=== PATIENT | male | born 1980 | race Caucasian/White ===

== ENCOUNTER 2018-11-15 23:02 | Emergency (ER) | payer OTHER ==
[2018-11-15] MEDS ORDERED: IBUPROFEN 400 MG TAB ONE (23:48)
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
== END 2018-11-16 01:21 | disposition home or self-care (01) ==
LOC: ER 23:02
PROC: 2W3CX1Z Immobilization of Right Lower Arm using Splint (ICD-10-PCS; principal; 2018-11-15)
DX: S62.626A Displaced fracture of middle phalanx of right little finger, initial encounter for closed fracture (principal); W24.1XXA Contact with transmission devices, not elsewhere classified, initial encounter; F41.9 Anxiety disorder, unspecified; F32.9 Major depressive disorder, single episode, unspecified
CPT/HCPCS: 99284

== ENCOUNTER 2019-03-27 22:38 | Emergency (ER) | payer OTHER ==
[2019-03-27 23:40] LABS: Protime INR 1.14
[2019-03-27 23:41] LABS: Absolute Lymphocytes (CBC) 1.5 K/uL (0.7-4.9); Basophils % 0.3 % (0-1.3); Hematocrit 37.4 % (39.6-49.0); Lymphocytes % 24.3 % (15.3-44.8); MPV 8.2 fL (7.6-11.3); RBC Red Blood Cell Count 4.39 M/uL (4.33-5.43)
[2019-03-28] LABS: ALT/SGPT 17 U/L (12-78); AST/SGOT 13 U/L (15-37); Albumin 3.4 g/dL (3.4-5.0); Alkaline Phosphatase 37 U/L (45-117); BUN Blood Urea Nitrogen 12 mg/dL (7-18); Bicarbonate 27 mmol/L (21-32); Bilirubin Direct 0.1 mg/dL (0-0.2); Bilirubin Total 0.3 mg/dL (0.2-1.0); Glucose Level 91 mg/dL (74-106); Magnesium 1.8 mg/dL (1.8-2.4); NT PRO-BNP 21 pg/mL (<125); Potassium 3.4 mmol/L (3.5-5.1); Protein, Total 6.8 g/dL (6.4-8.2); Sodium Level 146 mmol/L (136-145); Troponin (Emerg Dept Use Only) < 0.02 ng/mL (0.0-0.045)
--- NOTE | 2019-03-28 00:36 | ER ---
Nurse's Notes [facility] Name: Kervin Alarcon Age: 38 yrs Sex: Male : 1980 Arrival Date: 03/27/2019 Time: 22:40 Bed 28 Private MD: Diagnosis: Chest pain, unspecified Presentation: 03/27 22:50 Presenting complaint: EMS states: Pt had a sudden set of chest pain. Pt states that he tr5 has had chest pain before. donor relations officer escort with pt. Transition of care: patient was not received from another setting of care. Onset of symptoms was March 27, 2019. Risk Assessment: Do you want to hurt yourself or someone else? Patient reports no desire to harm self or others. Initial Sepsis Screen: Does the patient meet any 2 criteria? No. Patient's initial sepsis screen is negative. Does the patient have a suspected source of infection? No. Patient's initial sepsis screen is negative. Care prior to arrival: Medication(s) given: ASA, 325 mg, x 1, Nitroglycerin, 0.4 mg SL x 1. 22:50 Method Of Arrival: EMS: [facility] tr5 22:50 Acuity: MADDI 3 tr5 Historical: - Allergies: 23:27 No Known Allergies; tr5 - Home Meds: 23:27 Klonopin oral [Active]; tr5 - PMHx: 23:27 Anxiety; Depression; tr5 - Immunization history:: Adult Immunizations up to date. - Social history:: Smoking status: Patient uses tobacco products, denies chronic smoking, but will smoke occasionally. - Ebola Screening: : No symptoms or risks identified at this time. Screenin:27 Abuse screen: Denies threats or abuse. Nutritional screening: No deficits noted. tr5 Tuberculosis screening: No symptoms or risk factors identified. Fall Risk None identified. Assessment: 23:24 General: Appears uncomfortable, Behavior is calm, cooperative, appropriate for age. tr5 Pain: Complains of pain in chest Pain does not radiate. Quality of pain is described as aching, Pain began 30 min ago. Neuro: Level of Consciousness is awake, alert, obeys commands, Oriented to person, place, time, Border Patrol Officer are equal bilaterally Moves all extremities. Cardiovascular: Heart tones present Capillary refill < 3 seconds Pulses are all present. Respiratory: Airway is patent Respiratory effort is even, unlabored, Respiratory pattern is regular, symmetrical. GI: No signs and/or symptoms were reported involving the gastrointestinal system. : No signs and/or symptoms were reported regarding the genitourinary system. EENT: No signs and/or symptoms were reported regarding the EENT system. Derm: No signs and/or symptoms reported regarding the dermatologic system. Vital Signs: 23:27 BP 124 / 90; Pulse 69; Resp 17; Temp 97.8(O); Pulse Ox 98% on R/A; Weight 54.43 kg (R); tr5 Height 5 ft. 7 in. (170.18 cm); 23:27 Body Mass Index 18.79 (54.43 kg, 170.18 cm) tr5 ED Course: 22:40 Patient arrived in ED. cf2 22:40 Dylan Moore PA is PHCP. johann 22:40 Bijan Almonte MD is Attending Physician. johann 22:50 Justin Calle, RN is Primary Nurse. tr5 22:53 Triage completed. tr5 23:00 Arm band placed on Patient placed. tr5 23:10 XRAY Chest (1 view) In Process Unspecified. EDMS 23:24 Initial lab(s) drawn, by ne, sent to lab. Inserted saline lock: 18 gauge in right tr5 antecubital area, using aseptic technique. Patient maintains SpO2 saturation greater than 95% on room air. 23:27 Bed in low position. Call light in reach. Side rails up X 1. Pulse ox on. NIBP on. tr5 03/28 01:08 No provider procedures requiring assistance completed. IV discontinued. tr5 Administered Medications: No medications were administered Outcome: 00:35 Discharge ordered by . johann 01:08 Discharged to Law Enforcement tr5 01:08 Condition: stable 01:08 Discharge instructions given to patient, police, Instructed on discharge instructions, follow up and referral plans. Demonstrated understanding of instructions, follow-up care. 01:09 Patient left the ED. tr5 Signatures: Dispatcher [employer] EDMS Dylan Moore PA PA jmm Rodriguez, Tommie, RN RN tr5 Jamal Sheehan cf2
--- NOTE | 2019-03-28 00:37 | EDPHYS ---
Physician Documentation [facility] Name: Kervin Alarcon Age: 38 yrs Sex: Male : 1980 Arrival Date: 03/27/2019 Time: 22:40 Bed 28 Private MD: ED Physician Bijan Almonte HPI: 03/27 22:47 This 38 yrs old Male presents to ER via EMS with complaints of Chest Pain. m 22:47 The patient or guardian reports chest pain that is located primarily in the substernal [facility] area. The pain does not radiate. Associated signs and symptoms: Pertinent negatives:. The chest pain is described as aching. Duration: The patient or guardian reports a single episode. Modifying factors: The symptoms are alleviated by nothing. the symptoms are aggravated by nothing. Patient also complains of sore throat and cough which began today. Denies fever or chills. . Historical: - Allergies: 23:27 No Known Allergies; tr5 - Home Meds: 23:27 Klonopin oral [Active]; tr5 - PMHx: 23:27 Anxiety; Depression; tr5 - Immunization history:: Adult Immunizations up to date. - Social history:: Smoking status: Patient uses tobacco products, denies chronic smoking, but will smoke occasionally. - Ebola Screening: : No symptoms or risks identified at this time. ROS: 22:47 Constitutional: Negative for fever, chills, and weight loss. jmm 22:47 ENT: Positive for sore throat. 22:47 Cardiovascular: Positive for chest pain. 22:47 Respiratory: Positive for 22:47 Respiratory: Positive for cough. 22:47 Abdomen/GI: Positive for 22:47 All other systems are negative. Exam: 22:47 Constitutional: This is a well developed, well nourished patient who is awake, alert, jmm and in no acute distress. Head/Face: atraumatic. Eyes: EOMI, no conjunctival erythema appreciated ENT: Moist Mucus Membranes Neck: Trachea midline, Supple Chest/axilla: Normal chest wall appearance and motion. 22:47 Back: Normal ROM Skin: General appearance color normal MS/ Extremity: Moves all extremities, no obvious deformities appreciated, no edema noted to the lower extremities Neuro: Awake and alert, normal gait Psych: Behavior is normal, Mood is normal, Patient is cooperative and pleasant 22:47 Cardiovascular: Rate: normal, Rhythm: regular, Pulses: no pulse deficits are appreciated. 22:47 Respiratory: the patient does not display signs of respiratory distress, Respirations: normal, Breath sounds: are clear throughout. 22:47 Abdomen/GI: Inspection: abdomen appears normal, Bowel sounds: normal, Palpation: abdomen is soft and non-tender, in all quadrants. Vital Signs: 23:27 BP 124 / 90; Pulse 69; Resp 17; Temp 97.8(O); Pulse Ox 98% on R/A; Weight 54.43 kg (R); tr5 Height 5 ft. 7 in. (170.18 cm); 23:27 Body Mass Index 18.79 (54.43 kg, 170.18 cm) tr5 MDM: 22:59 Patient medically screened. [facility] 03/28 00:33 Data reviewed: vital signs, nurses notes. Counseling: I had a detailed discussion with [facility] the patient and/or guardian regarding: the historical points, exam findings, and any diagnostic results supporting the discharge/admit diagnosis, radiology results, the need for outpatient follow up. ED course: HEART SCORE = 0 PERC NEGATIVE. . 12 22:41 Order name: Basic Metabolic Panel; Complete Time: 00:07 [facility] 03/27 22:41 Order name: CBC with Diff; Complete Time: 00:07 [facility] 03/27 22:41 Order name: LFT's; Complete Time: 00:07 [facility] 03/27 22:41 Order name: Magnesium; Complete Time: 00:07 [facility] 03/27 22:41 Order name: NT PRO-BNP; Complete Time: 00:07 [facility] 03/27 22:41 Order name: PT-INR; Complete Time: 00:07 [facility] 03/27 22:41 Order name: Troponin (emerg Dept Use Only); Complete Time: 00:07 [facility] 03/27 22:41 Order name: XRAY Chest (1 view) [facility] 03/27 22:41 Order name: EKG; Complete Time: 22:42 [facility] 03/27 22:41 Order name: Cardiac monitoring; Complete Time: 23:57 [facility] 03/27 22:41 Order name: EKG - Nurse/Tech; Complete Time: 23:57 [facility] 03/27 23:08 Order name: Flu; Complete Time: 00:07 [facility] 03/27 23:08 Order name: Strep; Complete Time: 00:07 [facility] 03/27 23:54 Order name: Throat Culture [facility] 03/27 22:41 Order name: IV Saline Lock; Complete Time: 23:31 [facility] 03/27 22:41 Order name: Labs collected and sent; Complete Time: 23:30 [facility] 03/27 22:41 Order name: O2 Per Protocol; Complete Time: 23:31 [facility] 03/27 22:41 Order name: O2 Sat Monitoring; Complete Time: 23:30 [facility] Administered Medications: No medications were administered Disposition: 07:59 Co-signature as Attending Physician, Bijan Almonte MD I agree with the assessment and tw4 plan of care. Disposition: 03/28/19 00:35 Discharged to Home. Impression: Chest pain, unspecified. - Condition is Stable. - Discharge Instructions: Nonspecific Chest Pain. - Medication Reconciliation Form, Thank You Letter, Antibiotic Education, Prescription Opioid Use form. - Follow up: Private Physician; When: 2 - 3 days; Reason: Recheck today's complaints, Continuance of care, Re-evaluation by your physician. Signatures: Dispatcher [employer] [facility] Dylan Moore PA PA Bijan Prado MD MD tw4 Justin Calle RN RN tr5 Corrections: (The following items were deleted from the chart) 01:09 00:35 03/28/2019 00:35 Discharged to Home. Impression: Chest pain, unspecified. tr5 Condition is Stable. Forms are Medication Reconciliation Form, Thank You Letter, Antibiotic Education, Prescription Opioid Use. Follow up: Private Physician; When: 2 - 3 days; Reason: Recheck today's complaints, Continuance of care, Re-evaluation by your physician. [facility]
[2019-03-28 01:41] VITALS: BP 124/90; TEMP 97.8; O2SAT 98
--- NOTE | 2019-03-28 06:20 | EKG ---
Test Date: 2019-03-27 Test Time: 23:45:33 Rake Operator: TR MEASUREMENT RESULTS: Intervals: Rate: 65 TX: 138 QRSD: 84 QT: 402 QTc: 418 [place]: P: 26 TX: 138 QRS: -14 T: 3 INTERPRETIVE STATEMENTS: Normal sinus rhythm Normal ECG Compared to ECG 08/16/2016 00:14:33 Right-axis deviation no longer present Electronically Signed On 03-28-19 06:19:16 SENIOR JAVA ENGINEER by Obdulio Meadows
--- NOTE | 2019-03-28 08:00 | RAD REPORT ---
EXAM DESCRIPTION: Bhavna Single View03/27/2019 11:11 pm CLINICAL HISTORY: Chest pain COMPARISON: 2006. FINDINGS: The lungs appear clear of acute infiltrate. The heart is normal size IMPRESSION: No acute abnormalities displayed
== END 2019-03-28 01:09 | disposition home or self-care (01) ==
LOC: ER 22:38
DX: R07.9 Chest pain, unspecified (principal); Z72.0 Tobacco use
CPT/HCPCS: 36415; 71045; 80048; 80076; 83735; 83880; 84484; 85025; 85610; 87070; 87081; 87804; 93005; 99284

== ENCOUNTER 2019-04-27 18:49 | Emergency (ER) | payer OTHER ==
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
--- NOTE | 2019-04-27 20:23 | EDPHYS ---
Physician Documentation [facility] Name: Kervin Alarcon Age: 38 yrs Sex: Male : 1980 Arrival Date: 04/27/2019 Time: 18:52 Bed 1 Private MD: ED Physician Russ Person HPI: 04/27 19:37 This 38 yrs old Male presents to ER via Ambulatory with complaints of Finger ps1 Injury. 19:37 Patient states that he broke the right small finger this summer. Tonight he dropped a ps1 piece of steel on hand has has re-injured same finger as well as right middle finger. Patient has limited ROM 2/2 pain. Pain is moderate when not being moved. Worse with movement. NV intact and no obvious deformity. . Historical: - Allergies: 19:03 No Known Allergies; aj1 - Home Meds: 19:03 None [Active]; aj1 - PMHx: 19:03 Anxiety; Depression; aj1 - PSHx: 19:03 None; aj1 - Immunization history:: Flu vaccine is not up to date. - Social history:: Smoking status: Patient/guardian denies using tobacco. - Ebola Screening: : Patient denies travel to an Ebola-affected area in the 21 days before illness onset. ROS: 19:37 Constitutional: Negative for fever, chills, and weight loss, Skin: Negative for injury, ps1 rash, and discoloration, Neuro: Negative for headache, weakness, numbness, tingling, and seizure. 19:37 MS/extremity: Positive for injury or acute deformity, pain, of the dorsal aspect of middle phalanx of right middle finger and dorsal aspect of proximal phalanx of right middle finger and PIP of right little finger. Exam: 19:37 Constitutional: This is a well developed, well nourished patient who is awake, alert, ps1 and in no acute distress. Head/Face: Normocephalic, atraumatic. Eyes: Pupils equal round and reactive to light, extra-ocular motions intact. Lids and lashes normal. Conjunctiva and sclera are non-icteric and not injected. Skin: Warm, dry with normal turgor. Normal color with no rashes, no lesions, and no evidence of cellulitis. Psych: Awake, alert, with orientation to person, place and time. Behavior, mood, and affect are within normal limits. 19:37 Musculoskeletal/extremity: Extremities: grossly normal except: noted in the PIP of right little finger: pain, noted in the dorsal aspect of proximal phalanx of right middle finger and dorsal aspect of middle phalanx of right middle finger: pain, Circulation is intact in all extremities. Sensation intact. Joints: All joints appear normal with full range of motion. in distraction. Vital Signs: 19:03 BP 140 / 94; Pulse 112; Resp 20; Temp 98.5; Pulse Ox 100% on R/A; Weight 49.9 kg (R); aj1 Height 5 ft. 11 in. (180.34 cm) (R); Pain 8/10; 19:03 Body Mass Index 15.34 (49.90 kg, 180.34 cm) aj1 MDM: 19:32 Patient medically screened. ps1 04/27 19:10 Order name: Hand Right 3 View XRAY; Complete Time: 20:12 ps1 Administered Medications: No medications were administered Disposition: 04/27/19 20:21 Discharged to Home. Impression: Pain in hand and fingers. - Condition is Stable. - Discharge Instructions: Hand Pain. - Prescriptions for Anaprox DS 550 mg Oral Tablet - take 1 tablet by ORAL route every 12 hours As needed; 20 tablet. Medrol (Albert) 4 mg Oral Tablets, Dose Pack - take 1 tablet by ORAL route as directed - follow package instructions; 1 packet. - Medication Reconciliation Form, Thank You Letter, Antibiotic Education, Prescription Opioid Use form. - Follow up: Franko Edwards MD; When: 7 - 10 days; Reason: Further diagnostic work-up, Recheck today's complaints, Continuance of care. Follow up: Emergency Department; When: As needed; Reason: Worsening of condition. - Problem is an acute exacerbation. - Symptoms are unchanged. Addendum: 05/02/2019 10:38 Addendum: attempt to call patient \T\[phone] to discuss results of right hand xray, cp but unable to leave message. Signatures: Dispatcher [employer] Liz Farah RN RN aj1 Bruce Alarcon PA PA cp Habalo, Winsy wh Singer, Phillip, MD MD ps1 Corrections: (The following items were deleted from the chart) 01/03 20:36 20:21 04/27/2019 20:21 Discharged to Home. Impression: Pain in hand and fingers. wh Condition is Stable. Forms are Medication Reconciliation Form, Thank You Letter, Antibiotic Education, Prescription Opioid Use. Follow up: Franko Edwards; When: 7 - 10 days; Reason: Further diagnostic work-up, Recheck today's complaints, Continuance of care. Follow up: Emergency Department; When: As needed; Reason: Worsening of condition. Problem is an acute exacerbation. Symptoms are unchanged. ps1
--- NOTE | 2019-04-27 20:23 | ER ---
Nurse's Notes [facility] Name: Kervin Alarcon Age: 38 yrs Sex: Male : 1980 Arrival Date: 04/27/2019 Time: 18:52 Bed 1 Private MD: Diagnosis: Pain in hand and fingers Presentation: 04/27 19:03 Presenting complaint: Patient states: "I dropped something on my finger, and it broken aj1 a month ago and I think I rebroke it" Patient reports pain to right pinky finger from dropping a piece of metal on it. Transition of care: patient was not received from another setting of care. Onset of symptoms was April 27, 2019. Risk Assessment: Do you want to hurt yourself or someone else? Patient reports no desire to harm self or others. Initial Sepsis Screen: Does the patient meet any 2 criteria? No. Patient's initial sepsis screen is negative. Does the patient have a suspected source of infection? No. Patient's initial sepsis screen is negative. Care prior to arrival: None. 19:03 Method Of Arrival: Ambulatory aj 19:03 Acuity: MADDI 4 aj1 Triage Assessment: 19:03 General: Appears in no apparent distress. uncomfortable, Behavior is calm, cooperative, aj1 appropriate for age. Pain: Complains of pain in dorsal aspect of middle phalanx of right little finger and dorsal aspect of proximal phalanx of right little finger Pain currently is 9 out of 10 on a pain scale. Neuro: Level of Consciousness is awake, alert, obeys commands, Oriented to person, place, time, situation. Cardiovascular: Patient's skin is warm and dry. Respiratory: Airway is patent Respiratory effort is even, unlabored, Respiratory pattern is regular, symmetrical. Musculoskeletal: Range of motion: limited in DIP of right little finger, PIP of right little finger and MCP of right little finger. Injury Description: Patient hurt his finger when he dropped a piece of metal on it. Historical: - Allergies: 19: No Known Allergies; aj1 - Home Meds: 19:03 None [Active]; aj1 - PMHx: 19:03 Anxiety; Depression; aj1 - PSHx: 19:03 None; aj1 - Immunization history:: Flu vaccine is not up to date. - Social history:: Smoking status: Patient/guardian denies using tobacco. - Ebola Screening: : Patient denies travel to an Ebola-affected area in the 21 days before illness onset. Screenin:25 Abuse screen: Denies threats or abuse. Denies injuries from another. Nutritional wh screening: No deficits noted. Tuberculosis screening: No symptoms or risk factors identified. Fall Risk None identified. Assessment: 19:27 General: Appears in no apparent distress. Behavior is calm, cooperative, appropriate wh for age. Pain: Complains of pain in right hand Pain does not radiate. Pain currently is 8 out of 10 on a pain scale. Quality of pain is described as aching, Pain began 1 hour ago. Neuro: Level of Consciousness is awake, alert, obeys commands, Oriented to person, place, time, situation, Appropriate for age. Cardiovascular: Capillary refill < 3 seconds. Respiratory: Airway is patent Respiratory effort is even, unlabored, Respiratory pattern is regular, symmetrical. GI: Abdomen is flat, non-distended. : No signs and/or symptoms were reported regarding the genitourinary system. EENT: No signs and/or symptoms were reported regarding the EENT system. Derm: Skin is intact, is healthy with good turgor, Skin is pink, warm \\T\\ dry. normal. Musculoskeletal: Circulation, motion, and sensation intact. 20:36 Reassessment: Patient appears in no apparent distress at this time. No changes from previously documented assessment. Patient and/or family updated on plan of care and expected duration. Pain level reassessed. Patient is alert, oriented x 3, equal unlabored respirations, skin warm/dry/pink. Vital Signs: 19:03 BP 140 / 94; Pulse 112; Resp 20; Temp 98.5; Pulse Ox 100% on R/A; Weight 49.9 kg (R); aj1 Height 5 ft. 11 in. (180.34 cm) (R); Pain 8/10; 19:03 Body Mass Index 15.34 (49.90 kg, 180.34 cm) aj1 ED Course: 18:52 Patient arrived in ED. mr 19:03 Triage completed. aj1 19:03 Arm band placed on Patient placed in an exam room. aj1 19:09 uRss Person MD is Attending Physician. ps1 19:11 Jesus Gan is Primary Nurse. 19:26 Patient has correct armband on for positive identification. Bed in low position. Call light in reach. Side rails up X 1. Pulse ox on. NIBP on. 19:35 Hand Right 3 View XRAY In Process Unspecified. EDMS 20:20 Franko Edwards MD is Referral Physician. ps1 20:27 No provider procedures requiring assistance completed. Patient did not have IV access during this emergency room visit. Administered Medications: No medications were administered Outcome: 20:21 Discharge ordered by . ps1 20:28 Discharged to home with family. wh 20:28 Condition: stable 20:28 Discharge instructions given to patient, family, Instructed on discharge instructions, follow up and referral plans. medication usage, POC Demonstrated understanding of instructions, follow-up care, medications, POC Prescriptions given X 2. 20:36 Patient left the ED. Signatures: Dispatcher [employer] EDMS Liz Westfall, RN RN aj1 Kvng, Ledy mr Malik, Winsy Russ Person MD MD ps1
[2019-04-27 21:45] VITALS: BP 140/94; TEMP 98.5; O2SAT 100
== END 2019-04-27 20:36 | disposition home or self-care (01) ==
LOC: ER 18:49
DX: M79.641 Pain in right hand (principal)
CPT/HCPCS: 99283

== ENCOUNTER 2021-06-07 15:40 | Emergency (ER) | payer OTHER ==
--- NOTE | 2021-06-07 17:28 | ER ---
Nurse's Notes [facility] Name: Kervin Alarcon Age: 41 yrs Sex: Male : 1980 Arrival Date: 06/07/2021 Time: 16:01 Bed 10 Private MD: Diagnosis: Dental caries, unspecified Presentation: 06/07 16:06 Chief complaint: Patient states: Left upper cuspid pain and swelling x 3 days. jl7 Coronavirus screen: At this time, the client does not indicate any symptoms associated with coronavirus-19. Ebola Screen: No symptoms or risks identified at this time. Initial Sepsis Screen: Does the patient meet any 2 criteria? No. Patient's initial sepsis screen is negative. Does the patient have a suspected source of infection? No. Patient's initial sepsis screen is negative. Risk Assessment: Do you want to hurt yourself or someone else? Patient reports no desire to harm self or others. Onset of symptoms was June 04, 2021. 16:06 Method Of Arrival: Ambulatory [facility] 16:06 Acuity: MADDI 4 jl7 Triage Assessment: 16:06 General: Appears in no apparent distress. uncomfortable, Behavior is calm, cooperative, jl7 appropriate for age. Pain: Complains of pain in upper left cuspid Pain currently is 8 out of 10 on a pain scale. EENT: Poor dentition noted. Reports pain. Historical: - Allergies: 16:08 No Known Allergies; jl7 - Home Meds: 16:08 None [Active]; jl7 - PMHx: 16:08 Anxiety; Depression; jl7 - PSHx: 16:08 None; jl7 - Immunization history:: Client reports having NOT received the Covid vaccine. - Social history:: Smoking status: Patient reports use of chewing tobacco. Screenin:09 Abuse screen: Denies threats or abuse. Denies injuries from another. Nutritional ld1 screening: No deficits noted. Tuberculosis screening: No symptoms or risk factors identified. Fall Risk None identified. Assessment: 17:09 General: Appears in no apparent distress. comfortable, Behavior is calm, cooperative, ld1 appropriate for age. Pain: Complains of pain in upper left cuspid Pain does not radiate. Pain currently is 9 out of 10 on a pain scale. Neuro: Level of Consciousness is awake, alert, obeys commands, Oriented to person, place, time, situation. Cardiovascular: Capillary refill < 3 seconds Patient's skin is warm and dry. Respiratory: Airway is patent Respiratory effort is even, unlabored. GI: Abdomen is flat, non-distended. : No signs and/or symptoms were reported regarding the genitourinary system. EENT: No signs and/or symptoms were reported regarding the EENT system. Derm: No signs and/or symptoms reported regarding the dermatologic system. Musculoskeletal: No signs and/or symptoms reported regarding the musculoskeletal system. Vital Signs: 16:06 BP 130 / 98; Pulse 87; Resp 17; Temp 98.7; Pulse Ox 99% ; Weight 58.97 kg; Height 5 ft. jl7 10 in. (177.80 cm); Pain 8/10; 17:09 BP 128 / 92; Pulse 85; Resp 18; Pulse Ox 100% on R/A; ld1 16:06 Body Mass Index 18.65 (58.97 kg, 177.80 cm) jl7 ED Course: 16:01 Patient arrived in ED. mr 16:08 Triage completed. jl7 16:08 Arm band placed on right wrist. jl7 16:14 Dylan Moore PA is PHCP. [facility] 16:14 Anoop Frias MD is Attending Physician. [facility] 17:09 Lianne Leach, KAIN is Primary Nurse. ld1 17:09 Patient has correct armband on for positive identification. Bed in low position. Call ld1 light in reach. Side rails up X2. Pulse ox on. NIBP on. Door closed. Noise minimized. Warm blanket given. 17:09 No provider procedures requiring assistance completed. ld1 17:36 Patient did not have IV access during this emergency room visit. ld1 Administered Medications: No medications were administered Outcome: 17:28 Discharge ordered by MD. [facility] 17:36 Discharged to home ambulatory. ld1 17:36 Condition: stable 17:36 Discharge instructions given to patient, Instructed on discharge instructions, follow up and referral plans. medication usage, Demonstrated understanding of instructions, follow-up care, medications, Prescriptions given X 1. 17:36 Patient left the ED. ld1 Signatures: Dylan Moore PA PA jmm RiveraLedy WynneDominga RN RN jl7 Lianne Leach, RN RN ld1
--- NOTE | 2021-06-07 17:28 | EDPHYS ---
Physician Documentation [facility] Name: Kervin Alarcon Age: 41 yrs Sex: Male : 1980 Arrival Date: 06/07/2021 Time: 16:01 Bed 10 Private MD: ED Physician Anoop Frias HPI: 06/07 17:24 This 41 yrs old Male presents to ER via Ambulatory with complaints of Toothache. jmm 17:24 The patient presents with pain, swelling. Onset: The symptoms/episode began/occurred jmm gradually. Duration: The symptoms are continuous, and are steadily getting worse. Modifying factors: The symptoms are alleviated by nothing, the symptoms are aggravated by nothing. Modifying factors: The symptoms are alleviated by the symptoms are aggravated by. Associated signs and symptoms: Pertinent negatives: fever. This is a 41-year-old male with history of anxiety depression the presents emerged department with complaints of left upper dental pain and swelling to the left cheek. Denies fever, shortness of breath, vomiting, . Historical: - Allergies: 16:08 No Known Allergies; jl7 - Home Meds: 16:08 None [Active]; jl7 - PMHx: 16:08 Anxiety; Depression; jl7 - PSHx: 16:08 None; jl7 - Immunization history:: Client reports having NOT received the Covid vaccine. - Social history:: Smoking status: Patient reports use of chewing tobacco. ROS: 17:24 Constitutional: Negative for fever, chills, and weight loss. jmm 17:24 Neck: Negative for injury, pain, and swelling, Cardiovascular: Negative for chest pain, palpitations, and edema, Respiratory: Negative for shortness of breath, cough, wheezing, and pleuritic chest pain. 17:24 ENT: Positive for dental pain. 17:24 All other systems are negative. Exam: 17:24 Constitutional: This is a well developed, well nourished patient who is awake, alert, jmm and in no acute distress. Head/Face: atraumatic. Eyes: EOMI, no conjunctival erythema appreciated 17:24 Neck: Trachea midline, Supple Chest/axilla: Normal chest wall appearance and motion. Cardiovascular: Regular rate and rhythm. No edema appreciated Respiratory: Normal respirations, no respiratory distress appreciated Abdomen/GI: Non distended, soft Back: Normal ROM Skin: General appearance color normal MS/ Extremity: Moves all extremities, no obvious deformities appreciated, no edema noted to the lower extremities Neuro: Awake and alert Psych: Behavior is normal, Mood is normal, Patient is cooperative and pleasant 17:24 ENT: Dental exam: dental caries, that is severe, specifically in the upper left lateral incisor (#10), upper left cuspid (#11) and upper left first bicuspid (#12), gum swelling, that is mild, specifically in the upper left cuspid (#11), upper left first bicuspid (#12), upper left second bicuspid (#13) and upper left first molar (#14). Vital Signs: 16:06 BP 130 / 98; Pulse 87; Resp 17; Temp 98.7; Pulse Ox 99% ; Weight 58.97 kg; Height 5 ft. jl7 10 in. (177.80 cm); Pain 8/10; 17:09 BP 128 / 92; Pulse 85; Resp 18; Pulse Ox 100% on R/A; ld1 16:06 Body Mass Index 18.65 (58.97 kg, 177.80 cm) jl7 MDM: 17:11 Patient medically screened. [facility] 17:27 Data reviewed: vital signs, nurses notes. Counseling: I had a detailed discussion with johann the patient and/or guardian regarding: the historical points, exam findings, and any diagnostic results supporting the discharge/admit diagnosis, the need for outpatient follow up, to return to the emergency department if symptoms worsen or persist or if there are any questions or concerns that arise at home. ED course: Patient is alert and nontoxic in the ED. I do not suspect Johnathan's angina. Administered Medications: No medications were administered Disposition: 19:30 Co-signature as Attending Physician, Anoop Frias MD I agree with the assessment and kdr plan of care. Disposition Summary: 06/07/21 17:28 Discharge Ordered Location: Home [facility] Condition: Stable [facility] Diagnosis - Dental caries, unspecified [facility] Followup: [facility] - With: Private Physician - When: 2 - 3 days - Reason: Recheck today's complaints, Continuance of care, Re-evaluation by your physician Discharge Instructions: - Discharge Summary Sheet seamus - Dental Caries, Adult [facility] Forms: - Medication Reconciliation Form seamus - Thank You Letter jmm - Antibiotic Education jmm - Prescription Opioid Use jm Prescriptions: - Augmentin 875-125 mg Oral Tablet - take 1 tablet by ORAL route every 12 hours for 10 days; 20 tablet; Refills: 0, jmm Product Selection Permitted Signatures: Anoop Frias MD MD kdr Mickail, Joel, PA PA jmm Leal, Jahala, RN RN jl7
[2021-06-07 17:53] VITALS: TEMP 98.7
[2021-06-07 17:54] VITALS: BP 128/92; O2SAT 100
== END 2021-06-07 17:36 | disposition home or self-care (01) ==
LOC: ER 15:40
DX: K02.9 Dental caries, unspecified (principal); F17.220 Nicotine dependence, chewing tobacco, uncomplicated
CPT/HCPCS: 99283

== ENCOUNTER 2021-11-01 21:07 | Emergency (ER) | payer OTHER ==
--- NOTE | 2021-11-01 22:29 | EDPHYS ---
Physician Documentation [facility] Name: Kervin Alarcon Age: 41 yrs Sex: Male : 1980 Arrival Date: 11/01/2021 Time: 21:09 Bed Treatment Private MD: ED Physician Bruce Martines HPI: 11/01 22:26 This 41 yrs old Male presents to ER via Ambulatory with complaints of Fever, Cough, kb Back Pain. 22:26 The patient or guardian reports cough, that is intermittent, described as mild, flu kb symptoms, low-grade fever, myalgias. Onset: The symptoms/episode began/occurred 3 day(s) ago. Severity of symptoms: At their worst the symptoms were mild, moderate, in the emergency department the symptoms are unchanged. Modifying factors: The symptoms are alleviated by nothing, the symptoms are aggravated by nothing. Associated signs and symptoms: Pertinent positives: fever, Pertinent negatives: chest pain, diarrhea, ear ache, nausea, rhinorrhea, sore throat, vomiting. The patient has not experienced similar symptoms in the past. The patient has not recently seen a physician. Historical: - Allergies: 21:24 No Known Allergies; jb4 - Home Meds: 21:24 None [Active]; jb4 - PMHx: 21:24 Anxiety; Depression; jb4 - PSHx: 21:24 None; jb4 - Immunization history:: Adult Immunizations up to date. - Social history:: Smoking status: Patient denies any tobacco usage or history of. ROS: 22:26 Cardiovascular: Negative for chest pain, palpitations, and edema. kb 22:26 Constitutional: Positive for body aches, chills, fatigue, fever, malaise. 22:26 Respiratory: Positive for cough. 22:26 All other systems are negative. Exam: 22:26 Constitutional: This is a well developed, well nourished patient who is awake, alert, kb and in no acute distress. Head/Face: Normocephalic, atraumatic. ENT: Moist Mucous membranes Cardiovascular: Regular rate and rhythm with a normal S1 and S2. No gallops, murmurs, or rubs. No pulse deficits. Respiratory: Respirations even and unlabored. No increased work of breathing. Talking in full sentences Skin: Warm, dry with normal turgor. Normal color. MS/ Extremity: Pulses equal, no cyanosis. Neurovascular intact. Full, normal range of motion. Neuro: Awake and alert, GCS 15, oriented to person, place, time, and situation. Moves all extremities. Normal gait. Psych: Awake, alert, with orientation to person, place and time. Behavior, mood, and affect are within normal limits. Vital Signs: 21:21 BP 139 / 99; Pulse 74; Resp 16; Temp 99.1(TE); Pulse Ox 100% on R/A; Weight 58.97 kg jb4 (R); Height 5 ft. 10 in. (177.80 cm) (R); Pain 9/10; 21:21 Body Mass Index 18.65 (58.97 kg, 177.80 cm) jb4 MDM: 21:31 Patient medically screened. kb 22:26 Data reviewed: vital signs, nurses notes. Data interpreted: Pulse oximetry: on room air kb is 100 %. Interpretation: normal. Counseling: I had a detailed discussion with the patient and/or guardian regarding: the historical points, exam findings, and any diagnostic results supporting the discharge/admit diagnosis, lab results, the need for outpatient follow up, a family practitioner, to return to the emergency department if symptoms worsen or persist or if there are any questions or concerns that arise at home. 11/01 21:29 Order name: COVID-19 SARS RT PCR (Document "Date of Onset" if Symptomatic); Complete jb4 Time: 22:26 Administered Medications: No medications were administered Disposition Summary: 11/01/21 22:28 Discharge Ordered Location: Home kb Condition: Stable kb Diagnosis - Coronavirus infection, unspecified kb Followup: kb - With: Emergency Department - When: As needed - Reason: Worsening of condition Followup: kb - With: Private Physician - When: 2 - 3 days - Reason: Recheck today's complaints, Continuance of care, Re-evaluation by your physician Discharge Instructions: - Discharge Summary Sheet kb - Viral Respiratory Infection, [id number] kb - COVID-19 kb Forms: - Medication Reconciliation Form kb - Thank You Letter kb - Antibiotic Education kb - Prescription Opioid Use kb Signatures: Dispatcher [employer] EDJessica Nichols, DAYAC BALDOMERO-Mendoza Trevino, RN RN jb4 Corrections: (The following items were deleted from the chart) 21:30 21:29 COVID 19 [id number] ordered. EDMS EDMS
--- NOTE | 2021-11-01 22:29 | ER ---
Nurse's Notes [facility] Name: Kervin Alarcon Age: 41 yrs Sex: Male : 1980 Arrival Date: 11/01/2021 Time: 21:09 Bed Treatment Private MD: Diagnosis: Coronavirus infection, unspecified Presentation: 11/01 21:21 Chief complaint: Patient states: I was around family that tested positive for covid and jb4 now I am having symptoms with fever, body aches and chills. I want to get tested for covid. I last took Tylenol this morning. Coronavirus screen: chills, fatigue, fever, muscle pain, Client presents with at least one sign or symptom that may indicate coronavirus-19. Standard/surgical mask placed on the client. Ebola Screen: No symptoms or risks identified at this time. Initial Sepsis Screen: Does the patient meet any 2 criteria? No. Patient's initial sepsis screen is negative. Does the patient have a suspected source of infection? No. Patient's initial sepsis screen is negative. Risk Assessment: Do you want to hurt yourself or someone else? Patient reports no desire to harm self or others. Onset of symptoms was November 01, 2021. Transition of care: patient was not received from another setting of care. 21:21 Method Of Arrival: Ambulatory jb4 21:21 Acuity: MADDI 4 jb4 Historical: - Allergies: 21:24 No Known Allergies; jb4 - Home Meds: 21:24 None [Active]; jb4 - PMHx: 21:24 Anxiety; Depression; jb4 - PSHx: 21:24 None; jb4 - Immunization history:: Adult Immunizations up to date. - Social history:: Smoking status: Patient denies any tobacco usage or history of. Screenin:44 Abuse screen: Denies threats or abuse. Nutritional screening: No deficits noted. jb4 Tuberculosis screening: No symptoms or risk factors identified. Fall Risk None identified. Assessment: 21:45 General: Appears in no apparent distress. uncomfortable, Behavior is calm, cooperative, jb4 appropriate for age. Pain: Complains of pain in Generalized body aches Pain does not radiate. Pain currently is 8 out of 10 on a pain scale. Quality of pain is described as aching. Neuro: Level of Consciousness is awake, alert, obeys commands, Oriented to person, place, time, situation. Cardiovascular: Patient's skin is warm and dry. Respiratory: Airway is patent Respiratory effort is even, unlabored, Respiratory pattern is regular, symmetrical. Derm: Skin is intact, Skin is pink, warm \T\ dry. Musculoskeletal: Circulation, motion, and sensation intact. Range of motion: intact in all extremities. 22:44 Reassessment: Patient appears in no apparent distress at this time. Patient and/or jb4 family updated on plan of care and expected duration. Pain level reassessed. Patient is alert, oriented x 3, equal unlabored respirations, skin warm/dry/pink. Vital Signs: 21:21 BP 139 / 99; Pulse 74; Resp 16; Temp 99.1(TE); Pulse Ox 100% on R/A; Weight 58.97 kg jb4 (R); Height 5 ft. 10 in. (177.80 cm) (R); Pain 9/10; 21:21 Body Mass Index 18.65 (58.97 kg, 177.80 cm) jb4 ED Course: 21:09 Patient arrived in ED. bp1 21:16 Jessica Keene FNP-C [facility]. kb 21:16 Bruce Martines MD is Attending Physician. kb 21:24 Triage completed. jb4 21:24 Arm band placed on right wrist. jb4 22:44 Patient has correct armband on for positive identification. Bed in low position. Call jb4 light in reach. Side rails up X 1. 22:44 No provider procedures requiring assistance completed. Patient did not have IV access jb4 during this emergency room visit. Administered Medications: No medications were administered Medication: 22:44 VIS not applicable for this client. jb4 Outcome: 22:28 Discharge ordered by . kb 22:44 Discharged to home ambulatory, with family. jb4 22:44 Condition: stable 22:44 Discharge instructions given to patient, Instructed on discharge instructions, follow up and referral plans. Demonstrated understanding of instructions, follow-up care. 22:44 Patient left the ED. jb4 Signatures: Jessica Keene FNP-C FNP-Ckb Bryson, James RN RN jb4 Jane Simpson bp1
[2021-11-01 23:02] VITALS: BP 139/99; TEMP 99.1; O2SAT 100
== END 2021-11-01 22:44 | disposition home or self-care (01) ==
LOC: ER 21:07
DX: U07.1 COVID-19 (principal)
CPT/HCPCS: 99281; U0003

== ENCOUNTER 2022-05-22 19:14 | Emergency (ER) | payer OTHER ==
--- OUTSIDE RECORDS SUMMARY | 2022-05-22 19:19 | XMS REPORT | Continuity of Care Document ---
:1980 Author Organization [facility] t Address [address] [place] [address] Care Team Providers Name Role Phone Lauren Daniel Primary Care Physician [phone] Problems This patient has no known problems. Allergies, Adverse Reactions, Alerts Allergy Allergy Status Severity Reaction(s) Onset Inactive Treating Comm ents Source Name Type Date Date Clinician Mesna - Propensi Active 2021-0 Intraven ty to 6-21 ous adverse 00:00: reaction 00 to drug Medications Ordered Filled Start Stop Current Ordering Indication Dosage Frequency Signature Comments Components Source Medication Medication Date Date Medication? Clinician (SIG) Name Name buprenorphi 2021-0 No 1mg ne 4 6-21 mg-naloxone 00:00: 1 mg 00 sublingual film buprenorphi 2021-0 No 1mg ne 4 6-21 mg-naloxone 00:00: 1 mg 00 sublingual film buprenorphi 2021-0 No 1mg ne 4 5-26 mg-naloxone 00:00: 1 mg 00 sublingual film buprenorphi 2-0 No 1mg ne 4 5-26 mg-naloxone 00:00: 1 mg 00 sublingual film buprenorphi 2-0 No 1mg ne 4 4-26 mg-naloxone 00:00: 1 mg 00 sublingual film buprenorphi 2-0 No 1mg ne 4 4-26 mg-naloxone 00:00: 1 mg 00 sublingual film buprenorphi 2-0 No 1mg ne 4 4-11 mg-naloxone 00:00: 1 mg 00 sublingual film buprenorphi 2-0 No 1mg ne 4 4-11 mg-naloxone 00:00: 1 mg 00 sublingual film Dose 2021-0 No Unknown 3-28 00:00: 00 Dose 2022-0 No Unknown 3-28 00:00: 00 Dose 2-0 No Unknown 2-28 00:00: 00 Dose 2-0 No Unknown 2-28 00:00: 00 Dose 2-0 No Unknown 1-31 00:00: 00 Dose 2-0 No Unknown 1-31 00:00: 00 buprenorphi 2-0 No 1mg ne 8 1-10 mg-naloxone 00:00: 2 mg 00 sublingual film buprenorphi 2-0 No 1mg ne 8 1-10 mg-naloxone 00:00: 2 mg 00 sublingual film buprenorphi 2020-1 No 1mg ne 8 2-16 mg-naloxone 00:00: 2 mg 00 sublingual film buprenorphi 2020-1 No 1mg ne 8 2-16 mg-naloxone 00:00: 2 mg 00 sublingual film buprenorphi 2020-1 No 1mg ne 8 1-18 mg-naloxone 00:00: 2 mg 00 sublingual film buprenorphi 2020-1 No 1mg ne 8 1-18 mg-naloxone 00:00: 2 mg 00 sublingual film amoxicillin 2020-0 No 1mg 500 mg 9-29 capsule 00:00: 00 amoxicillin 1-0 No 1mg 500 mg 9-29 capsule 00:00: 00 buprenorphi 1-0 No 1mg ne 8 9-15 mg-naloxone 00:00: 2 mg 00 sublingual film buprenorphi 2020-0 No 1mg ne 8 9-15 mg-naloxone 00:00: 2 mg 00 sublingual film buprenorphi 2020-0 No 1mg ne 8 8-17 mg-naloxone 00:00: 2 mg 00 sublingual film buprenorphi 2020-0 No 1mg ne 8 8-17 mg-naloxone 00:00: 2 mg 00 sublingual film Narcan 4 2020-0 No 1(50 mg mg/actuatio 7-20 iron) n nasal 00:00: spray 00 buprenorphi 2020-0 No 1mg ne 8 7-20 mg-naloxone 00:00: 2 mg 00 sublingual film Narcan 4 2020-0 No 1(50 mg mg/actuatio 7-20 iron) n nasal 00:00: spray 00 buprenorphi 2021-0 No 1mg ne 8 7-20 mg-naloxone 00:00: 2 mg 00 sublingual film buprenorphi 1-0 No 1mg ne 8 6-25 mg-naloxone 00:00: 2 mg 00 sublingual film buprenorphi 1-0 No 1mg ne 8 6-25 mg-naloxone 00:00: 2 mg 00 sublingual film buprenorphi 1-0 No 1mg ne 8 5-27 mg-naloxone 00:00: 2 mg 00 sublingual film buprenorphi 1-0 No 1mg ne 8 5-27 mg-naloxone 00:00: 2 mg 00 sublingual film Suboxone 4 1-0 No 1mg mg-1 mg 4-29 sublingual 00:00: film 00 Suboxone 4 1-0 No 1mg mg-1 mg 4-29 sublingual 00:00: film 00 trazodone 2021-0 No 12mg 50 mg 3-31 tablet 00:00: 00 Suboxone 4 1-0 No 1mg mg-1 mg 3-31 sublingual 00:00: film 00 trazodone 2021-0 No 12mg 50 mg 3-31 tablet 00:00: 00 Suboxone 4 1-0 No 1mg mg-1 mg 3-31 sublingual 00:00: film 00 Suboxone 8 1-0 No 1mg mg-2 mg 3-04 sublingual 00:00: film 00 Suboxone 8 1-0 No 1mg mg-2 mg 3-04 sublingual 00:00: film 00 Suboxone 8 1-0 No 1mg mg-2 mg 2-04 sublingual 00:00: film 00 Suboxone 8 1-0 No 1mg mg-2 mg 2-04 sublingual 00:00: film 00 Suboxone 8 2021-0 No 1mg mg-2 mg 1-21 sublingual 00:00: film 00 Suboxone 8 1-0 No 1mg mg-2 mg 1-21 sublingual 00:00: film 00 Suboxone 8 2021-0 No 1mg mg-2 mg 1-07 sublingual 00:00: film 00 Suboxone 8 1-0 No 1mg mg-2 mg 1-07 sublingual 00:00: film 00 Suboxone 12 2019-1 No 1mg mg-3 mg 2-17 sublingual 00:00: film 00 Suboxone 12 2020-1 No 1mg mg-3 mg 2-17 sublingual 00:00: film 00 Suboxone 8 2020-1 No 1mg mg-2 mg 2-17 sublingual 00:00: film 00 Suboxone 8 2020-1 No 1mg mg-2 mg 2-17 sublingual 00:00: film Suboxone 12 2020-1 No 1mg mg-3 mg 2-17 sublingual 00:00: film Suboxone 12 2020-1 No 1mg mg-3 mg 2-17 sublingual 00:00: film 00 Suboxone 8 2020-1 No 1mg mg-2 mg 2-17 sublingual 00:00: film Suboxone 8 2020-1 No 1mg mg-2 mg 2-17 sublingual 00:00: film Suboxone 8 2020-1 No 1mg mg-2 mg 2-04 sublingual 00:00: film Suboxone 8 2020-1 No 1mg mg-2 mg 2-04 sublingual 00:00: film Suboxone 8 2020-1 No 1mg mg-2 mg 1-10 sublingual 00:00: film Suboxone 8 2020-1 No 1mg mg-2 mg 1-10 sublingual 00:00: film 00 Suboxone 8 2020-1 No 1mg mg-2 mg 0-16 sublingual 00:00: film Suboxone 8 2020-1 No 1mg mg-2 mg 0-16 sublingual 00:00: film Suboxone 8 2020-0 No 1mg mg-2 mg 9-23 sublingual 00:00: film Suboxone 8 2020-0 No 1mg mg-2 mg 9-23 sublingual 00:00: film 00 Suboxone 8 2020-0 No 1mg mg-2 mg 8-26 sublingual 00:00: film Suboxone 8 2020-0 No 1mg mg-2 mg 8-26 sublingual 00:00: film 00 Suboxone 8 2020-0 No 1mg mg-2 mg 7-31 sublingual 00:00: film 00 Suboxone 8 2020-0 No 1mg mg-2 mg 7-31 sublingual 00:00: film Suboxone 8 2020-0 No 1mg mg-2 mg 7-07 sublingual 00:00: film 00 Suboxone 8 2020-0 No 1mg mg-2 mg 7-07 sublingual 00:00: film 00 Suboxone 8 2020-0 No 1mg mg-2 mg 7-07 sublingual 00:00: film 00 Suboxone 8 2020-0 No 1mg mg-2 mg 7-07 sublingual 00:00: film 00 Suboxone 8 2020-0 No 1mg mg-2 mg 6-09 sublingual 00:00: film 00 Suboxone 8 2020-0 No 1mg mg-2 mg 6-09 sublingual 00:00: film 00 Suboxone 8 2020-0 No 1mg mg-2 mg 5-13 sublingual 00:00: film 00 Suboxone 8 2020-0 No 1mg mg-2 mg 5-13 sublingual 00:00: film 00 Suboxone 8 2020-0 No 1mg mg-2 mg 5-11 sublingual 00:00: film 00 Suboxone 8 2020-0 No 1mg mg-2 mg 5-11 sublingual 00:00: film 00 citalopram 2020-0 No 1mg 20 mg 4-16 tablet 00:00: 00 Suboxone 8 2020-0 No 1mg mg-2 mg 4-16 sublingual 00:00: film 00 hydroxyzine 2020-0 No 1mg pamoate 50 4-16 mg capsule 00:00: 00 citalopram 2020-0 No 1mg 20 mg 4-16 tablet 00:00: 00 Suboxone 8 2020-0 No 1mg mg-2 mg 4-16 sublingual 00:00: film 00 hydroxyzine 2020-0 No 1mg pamoate 50 4-16 mg capsule 00:00: 00 Suboxone 8 2020-0 No 1mg mg-2 mg 3-19 sublingual 00:00: film 00 Suboxone 8 2020-0 No 1mg mg-2 mg 3-19 sublingual 00:00: film 00 Suboxone 8 2020-0 No 1mg mg-2 mg 2-18 sublingual 00:00: film 00 Suboxone 8 2020-0 No 1mg mg-2 mg 2-18 sublingual 00:00: film 00 Suboxone 12 2020-0 No 1mg mg-3 mg 1-29 sublingual 00:00: film 00 Suboxone 12 2020-0 No 1mg mg-3 mg 1-29 sublingual 00:00: film 00 citalopram 2020-0 No 1mg 10 mg 1-23 tablet 00:00: 00 hydroxyzine 2020-0 No 1mg pamoate 50 1-23 mg capsule 00:00: 00 citalopram 2020-0 No 1mg 10 mg 1-23 tablet 00:00: 00 hydroxyzine 2020-0 No 1mg pamoate 50 1-23 mg capsule 00:00: 00 Narcan 4 2020-0 No 1(50 mg mg/actuatio 1-16 iron) n nasal 00:00: spray 00 Narcan 4 2020-0 No 1(50 mg mg/actuatio 1-16 iron) n nasal 00:00: spray 00 Suboxone 8 2020-0 No 1mg mg-2 mg 1-15 sublingual 00:00: film 00 Suboxone 4 2020-0 No 1mg mg-1 mg 1-15 sublingual 00:00: film 00 Suboxone 8 2020-0 No 1mg mg-2 mg 1-15 sublingual 00:00: film 00 Suboxone 4 2020-0 No 1mg mg-1 mg 1-15 sublingual 00:00: film 00 Vital Signs Vital Name Observation Time Observation Value Comments Source BP Systolic 2021-11-08 15:09:00 BP Diastolic 2021-11-08 15:09:00 Weight Measured 2021-11-08 15:09:00 116.60 pounds Height Measured 2021-11-08 15:09:00 70.00 inches Body Temperature 2021-11-08 15:09:00 Heart Rate 2021-11-08 15:09:00 Respiratory Rate 2021-11-08 15:09:00 BP Systolic 2021-10-22 17:05:00 145 mm[Hg] BP Diastolic 2021-10-22 17:05:00 89 mm[Hg] Weight Measured 2021-10-22 17:05:00 116.60 pounds Height Measured 2021-10-22 17:05:00 70.00 inches Body Temperature 2021-10-22 17:05:00 98.30 degrees Heart Rate 2021-10-22 17:05:00 61.00 /min Respiratory Rate 2021-10-22 17:05:00 17.00 /min BP Systolic 2021-10-13 09:16:00 154 mm[Hg] BP Diastolic 2021-10-13 09:16:00 101 mm[Hg] Weight Measured 2021-10-13 09:16:00 114.80 pounds Height Measured 2021-10-13 09:16:00 70.00 inches Body Temperature 2021-10-13 09:16:00 98.30 degrees Heart Rate 2021-10-13 09:16:00 71.00 /min Respiratory Rate 2021-10-13 09:16:00 16.00 /min Body Temperature 2021-09-08 08:07:00 98.50 degrees Heart Rate 2021-09-08 08:07:00 58.00 /min Respiratory Rate 2021-09-08 08:07:00 18.00 /min BP Systolic 2021-09-08 08:07:00 152 mm[Hg] BP Diastolic 2021-09-08 08:07:00 112 mm[Hg] Weight Measured 2021-09-08 08:07:00 117.20 pounds Height Measured 2021-09-08 08:07:00 70.00 inches BP Systolic 2021-05-04 10:28:00 BP Diastolic 2021-05-04 10:28:00 Weight Measured 2021-05-04 10:28:00 130.00 pounds Height Measured 2021-05-04 10:28:00 70.00 inches Body Temperature 2021-05-04 10:28:00 Heart Rate 2021-05-04 10:28:00 Respiratory Rate 2021-05-04 10:28:00 BP Systolic 2021-04-29 13:36:00 BP Diastolic 2021-04-29 13:36:00 Weight Measured 2021-04-29 13:36:00 130.00 pounds Height Measured 2021-04-29 13:36:00 70.00 inches Body Temperature 2021-04-29 13:36:00 Heart Rate 2021-04-29 13:36:00 Respiratory Rate 2021-04-29 13:36:00 BP Systolic 2021-04-09 11:37:00 158 mm[Hg] BP Diastolic 2021-04-09 11:37:00 93 mm[Hg] Weight Measured 2021-04-09 11:37:00 134.80 pounds Height Measured 2021-04-09 11:37:00 70.00 inches Body Temperature 2021-04-09 11:37:00 98.60 degrees Heart Rate 2021-04-09 11:37:00 62.00 /min Respiratory Rate 2021-04-09 11:37:00 21.00 /min BP Systolic 2021-03-12 11:45:00 141 mm[Hg] BP Diastolic 2021-03-12 11:45:00 95 mm[Hg] Weight Measured 2021-03-12 11:45:00 134.20 pounds Height Measured 2021-03-12 11:45:00 70.00 inches Body Temperature 2021-03-12 11:45:00 94.40 degrees Heart Rate 2021-03-12 11:45:00 104.00 /min Respiratory Rate 2021-03-12 11:45:00 16.00 /min BP Systolic 2021-01-21 15:51:00 115 mm[Hg] BP Diastolic 2021-01-21 15:51:00 66 mm[Hg] Weight Measured 2021-01-21 15:51:00 125.20 pounds Height Measured 2021-01-21 15:51:00 70.00 inches Body Temperature 2021-01-21 15:51:00 97.80 degrees Heart Rate 2021-01-21 15:51:00 61.00 /min Respiratory Rate 2021-01-21 15:51:00 BP Systolic 2021-01-20 16:54:00 BP Diastolic 2021-01-20 16:54:00 Weight Measured 2021-01-20 16:54:00 128.00 pounds Height Measured 2021-01-20 16:54:00 70.00 inches Body Temperature 2021-01-20 16:54:00 Heart Rate 2021-01-20 16:54:00 Respiratory Rate 2021-01-20 16:54:00 BP Systolic 2021-01-06 13:11:00 BP Diastolic 2021-01-06 13:11:00 Weight Measured 2021-01-06 13:11:00 130.00 pounds Height Measured 2021-01-06 13:11:00 70.00 inches Body Temperature 2021-01-06 13:11:00 Heart Rate 2021-01-06 13:11:00 Respiratory Rate 2021-01-06 13:11:00 Procedures This patient has no known procedures. Plan of Care Planned Activity Planned Date Details Comments Source Goal Plan of Care Note [code = 26340-0] Goal Plan of Care Note [code = 75167-8] Goal Plan of Care Note [code = 23278-4] Goal Plan of Care Note [code = 38235-7] Goal Plan of Care Note [code = 13337-9] Goal Plan of Care Note [code = 52389-0] Goal Plan of Care Note [code = 99478-2] Goal Plan of Care Note [code = 78998-4] Goal Plan of Care Note [code = 90969-7] Goal Plan of Care Note [code = 19478-5] Goal Plan of Care Note [code = 17431-9] Goal Plan of Care Note [code = 80662-2] Goal Plan of Care Note [code = 65243-3] Goal Plan of Care Note [code = 67600-7] Goal Plan of Care Note [code = 47024-0] Goal Plan of Care Note [code = 12314-6] Goal Plan of Care Note [code = 22408-4] Goal Plan of Care Note [code = 76558-1] Goal Plan of Care Note [code = 86927-5] Goal Plan of Care Note [code = 93207-9] Goal Plan of Care Note [code = 87085-9] Goal Plan of Care Note [code = 58679-0] Goal Plan of Care Note [code = 97971-6] Goal Plan of Care Note [code = 13410-4] Goal Plan of Care Note [code = 76261-1] Goal Plan of Care Note [code = 18345-7] Goal Plan of Care Note [code = 87236-1] Goal Plan of Care Note [code = 43497-1] Goal Plan of Care Note [code = 84327-3] Goal Plan of Care Note [code = 71642-1] Goal Plan of Care Note [code = 16857-7] Goal Plan of Care Note [code = 85585-1] Goal Plan of Care Note [code = 83066-5] Goal Plan of Care Note [code = 19191-7] Goal Plan of Care Note [code = 67149-5] Goal Plan of Care Note [code = 58031-0] Goal Plan of Care Note [code = 12177-4] Goal Plan of Care Note [code = 41463-3] Goal Plan of Care Note [code = 41953-9] Encounters Start End Encounter Admission Attending Care Care Encounter Source Date/Time Date/Time Type Type Clinicians Facility Department ID 2022-04-29 2022-04-29 Outpatient CORA SHEPHERD [id number] [facility] 10:34:20 10:34:20 0105 F Douglas 2022-04-01 2022-04-01 Outpatient CORA SHEPHERD [id number] [facility] 11:24:40 11:24:40 1208 F Douglas 2022-03-04 2022-03-04 Outpatient CORA SHEPHERD [id number] [facility] 10:48:07 10:48:07 [id number] F Douglas 2022-02-04 2022-02-04 Outpatient CORA SHEPHERD [id number] [facility] 10:52:30 10:52:30 1013 F Douglas 2021-11-08 2021-11-08 Outpatient [id number] 00:00:00 00:00:00 Visit [id number] 2021-10-22 2021-10-22 Outpatient [id number] 00:00:00 00:00:00 Visit [id number] Results Test Description Test Time Test Comments Results Result Comments Source COMPREHENSIVE METABOLIC PANEL 2021-09-09 06:59:40 Test Item Value Reference Range Interpretation Comme nts GLUCOSE (test code = 2217) 86 MG/DL 70-99 BUN (test code = 2208) 7 MG/DL 6-20 CREATININE (test code = 0.69 MG/DL 0.80-1.40 L 2213) eGFR (2020 CKD-EPI) (test 120 ML/MIN/1.73 >60 code = 87626) CALC BUN/CREAT (test code = 10 RATIO 6-28 2235) SODIUM (test code = 2231) 142 MEQ/L 133-146 POTASSIUM (test code = 2228) 3.9 MEQ/L 3.5-5.4 CHLORIDE (test code = 2215) 100 MEQ/L 95-107 CARBON DIOXIDE (test code = 24 MEQ/L -2205) CALCIUM (test code = 220) 10.0 MG/DL 8.5-10.5 PROTEIN, TOTAL (test code = 8.1 G/DL 6.1-8.3 2228) ALBUMIN (test code = 2201) 5.3 G/DL 3.5-5.2 H CALC GLOBULIN (test code = 2.8 G/DL 1.9-3.7 2239) CALC A/G RATIO (test code = 1.9 RATIO 1.0-2.6 2233) BILIRUBIN, TOTAL (test code 0.8 MG/DL See_Comment [Automated message] The = 2206) system which ge nerated this result transmit colt reference range : <=1.2. The reference range was not used to interpr et this result as lana l/abnormal. ALKALINE PHOSPHATASE (test 58 U/L 40-117 code = 2204) AST (test code = 221) 18 U/L 9-50 ALT (test code = 2219) 12 U/L 5-50 LIPID [id number] 06:59:40 Test Item Value Reference Range Interpretation Comments CHOLESTEROL (test 166 MG/DL <200 code = 2210) TRIGLYCERIDES (test 51 MG/DL <150 code = 2232) HDL CHOLESTEROL (test 57 MG/DL >39 code = 2220) CALC LDL CHOL (test 96 MG/DL <100 NOTE: C ALCULATED LDL code = 2237) IS BASED ON ANUP-LOPEZ METHOD WHICHINCLUDES ADJUSTABLE TRIGLYCERIDE:VL DL CHOLESTEROL RAT IO.THIS FACTOR VARIES B Y MEASURED TRIGLY CERIDE AND NON-HDLCHOL ESTEROL CONCENTRATIONS WITH INCREASED CALCU LATED LDL SEENIN HIGH ER TRIGLYCERIDE OR LOWER NON-HDL SPECIME NS. FOR MOREINFORMATION , SEE CLIENT ANNOUNCE MENT AT [email or web address] RISK RATIO LDL/HDL 1.68 RATIO <3.55 (test code = 2238) HIV 1/2 4TH GEN, RFLX [id number] 04:19:34 Test Item Value Reference Range Interpretation Comments HIV 1/2 4TH GEN, RFLX CONF (test NON-REACTIVE NON-REACTIVE code = 3514) HEPATITIS PANEL, [id number] 04:19:34 Test Item Value Reference Range Interpretation Comments HEPATITIS A IgM (test NON-REACTIVE NON-REACTIVE code = 11516) HEPATITIS B CORE IgM NON-REACTIVE NON-REACTIVE (test code = 4644) HEPATITIS B SURF AG NON-REACTIVE NON-REACTIVE (test code = 2739) HEPATITIS C ANTIBODY NON-REACTIVE NON-REACTIVE (test code = 4675) INTERPRETATION (NOTE) Hepatitis A HEPATITIS A: (test serology shows no code = 2552) evidence of acu te hepatitis A. INTERPRETATION (NOTE) Hepatitis B HEPATITIS B: (test serology shows no code = 78567) evidence of ac dre hepatitis B and no indication of exposure to hepatitis B vir us in the previous si xto eight months. INTERPRETATION (NOTE) Hepatitis C HEPATITIS C: (test serology shows no code = 04336) evidence of ex posure to hepatitisC v irus at this time. I t can take up to 12 m onths after exposure tothe hepatitis C vir us for antibodies to become detectab le in the blood in ce rtain patients. UNLES S OTHERWISE INDIC ATED, ALL TESTING PERFORMED [facility], [facility]. [address] [place] [address] DIRECTOR: JA HERNÁNDEZ M.D. CLIA NUMBER [id number] [place] [id number] 04:07:42 Test Item Value Reference Range Interpretation Comments RPR RESULT (test code = NON-REACTIVE NON-REACTIVE 3501) RPR TITER (test code = 3500) NOT INDIC. TITER NOT INDIC. CBC W/AUTO DIFF WITH [id number] 02:41:18 Test Item Value Reference Range Interpretation Comments WBC (test code = 7.1 K/UL 3.5-11.0 1001) RBC (test code = 5.12 M/UL 4.50-6.10 1002) HEMOGLOBIN (test code 14.6 G/DL 13.5-17.0 = 1003) HEMATOCRIT (test code 41.8 % 40.0-51.0 = 1004) MCV (test code = 81.6 fL 80.0-99.0 1005) MCH (test code = 28.5 PG 25.0-33.0 1006) MCHC (test code = 34.9 G/DL 31.0-36.0 1007) RDW (test code = 13.0 % 11.5-15.0 1038) NEUTROPHILS (test 69.1 % code = 1008) LYMPHOCYTES (test 22.2 % code = 1010) MONOCYTES (test code 6.4 % = 1011) EOSINOPHILS (test 1.6 % code = 1012) BASOPHILS (test code 0.6 % = 1013) IMMATURE GRANULOCYTES 0.1 % (test code = 1036) NUCLEATED RBCS (test 0.0 /100 WBC'S See_Comment [Aut omated code = 1065) message] The sy stem which generated this result transmitted reference range : 0.0. The refere nce range was not u sed to interpret th is result as normal/abnormal . PLATELET COUNT (test 254 K/UL 130-400 code = 1015) ABSOLUTE NEUTROPHILS 4.88 K/UL 1.50-7.50 (test code = 1066) ABSOLUTE LYMPHOCYTES 1.57 K/UL 1.00-4.00 (test code = 1067) ABSOLUTE MONOCYTES 0.45 K/UL 0.20-1.00 (test code = 1068) ABSOLUTE EOSINOPHILS 0.11 K/UL 0.00-0.50 (test code = 1040) ABSOLUTE BASOPHILS 0.04 K/UL 0.00-0.20 (test code = 1069) ABS IMMATURE 0.01 K/UL 0.00-0.10 GRANULOCYTES (test code = 1020) ABS NUCLEATED RBCS 0.00 K/UL 0.00-0.11 (test code = 80577) HEMOGLOBIN [id number] 02:36:22 Test Item Value Reference Range Interpretation Comments HEMOGLOBIN A1c (test code = 68549) 5.3 % 4.2-5.6 LIPID [id number] 00:00:00 Test Item Value Reference Range Interpretation Comments CHOLESTEROL (test code = 2210) 166 MG/DL TRIGLYCERIDES (test code = 2232) 51 MG/DL HDL CHOLESTEROL (test code = 2220) 57 MG/DL CALC LDL CHOL (test code = 2237) 96 MG/DL RISK RATIO LDL/HDL (test code = 1.68 RATIO 2238) HEMOGLOBIN [id number] 00:00:00 Test Item Value Reference Range Interpretation Comments HEMOGLOBIN A1c (test code = 15160) 5.3 % HEMOGLOBIN [id number] 00:00:00 Test Item Value Reference Range Interpretation Comments HEMOGLOBIN A1c (test code = 34205) 5.3 % [id number] 00:00:00 Test Item Value Reference Range Interpretation Comments RPR RESULT (test code = NON-REACTIVE 3501) RPR TITER (test code = 3500) NOT INDIC. TITER [id number] 00:00:00 Test Item Value Reference Range Interpretation Comments RPR RESULT (test code = NON-REACTIVE 3501) RPR TITER (test code = 3500) NOT INDIC. TITER HIV AB/AG COMBO RFLX [id number] 00:00:00 Test Item Value Reference Range Interpretation Comments HIV 1/2 4TH GEN, RFLX CONF (test NON-REACTIVE code = 3514) ACUTE HEPATITIS [id number] 00:00:00 Test Item Value Reference Range Interpretation Comments HEPATITIS A IgM (test code = NON-REACTIVE 74723) HEPATITIS B CORE IgM (test code NON-REACTIVE = 4698) HEPATITIS B SURF AG (test code = NON-REACTIVE 8222) HEPATITIS C ANTIBODY (test code NON-REACTIVE = 4675) INTERPRETATION HEPATITIS A: (NOTE) (test code = 2552) INTERPRETATION HEPATITIS B: (NOTE) (test code = 60170) INTERPRETATION HEPATITIS C: (NOTE) (test code = 45417) COMPREHENSIVE METABOLIC [id number] 00:00:00 Test Item Value Reference Range Interpretation Comments GLUCOSE (test code = 2217) 86 MG/DL BUN (test code = 2208) 7 MG/DL CREATININE (test code = 2214) 0.69 MG/DL eGFR (2020 CKD-EPI) (test 120 ML/MIN/1.73 code = 96915) CALC BUN/CREAT (test code = 10 RATIO 2235) SODIUM (test code = 2231) 142 MEQ/L POTASSIUM (test code = 2228) 3.9 MEQ/L CHLORIDE (test code = 2215) 100 MEQ/L CARBON DIOXIDE (test code = 24 MEQ/L 2205) CALCIUM (test code = 2209) 10.0 MG/DL PROTEIN, TOTAL (test code = 8.1 G/DL 2228) ALBUMIN (test code = 2201) 5.3 G/DL CALC GLOBULIN (test code = 2.8 G/DL 2239) CALC A/G RATIO (test code = 1.9 RATIO 2234) BILIRUBIN, TOTAL (test code = 0.8 MG/DL 2207) ALKALINE PHOSPHATASE (test 58 U/L code = 2204) AST (test code = 2218) 18 U/L ALT (test code = 2219) 12 U/L CBC W/AUTO [id number] 00:00:00 Test Item Value Reference Range Interpretation Comments WBC (test code = 1001) 7.1 K/UL RBC (test code = 1002) 5.12 M/UL HEMOGLOBIN (test code = 1003) 14.6 G/DL HEMATOCRIT (test code = 1004) 41.8 % MCV (test code = 1005) 81.6 fL MCH (test code = 1006) 28.5 PG MCHC (test code = 1007) 34.9 G/DL RDW (test code = 1038) 13.0 % NEUTROPHILS (test code = 1008) 69.1 % LYMPHOCYTES (test code = 1010) 22.2 % MONOCYTES (test code = 1011) 6.4 % EOSINOPHILS (test code = 1012) 1.6 % BASOPHILS (test code = 1013) 0.6 % IMMATURE GRANULOCYTES (test 0.1 % code = 1036) NUCLEATED RBCS (test code = 0.0 /100WBC'S 1065) PLATELET COUNT (test code = 254 K/UL 1015) ABSOLUTE NEUTROPHILS (test code 4.88 K/UL = 1066) ABSOLUTE LYMPHOCYTES (test code 1.57 K/UL = 1067) ABSOLUTE MONOCYTES (test code = 0.45 K/UL 1068) ABSOLUTE EOSINOPHILS (test code 0.11 K/UL = 1040) ABSOLUTE BASOPHILS (test code = 0.04 K/UL 1069) ABS IMMATURE GRANULOCYTES (test 0.01 K/UL code = 1020) ABS NUCLEATED RBCS (test code = 0.00 K/UL 11856) CBC W/AUTO [id number] 00:00:00 Test Item Value Reference Range Interpretation Comments WBC (test code = 1001) 7.1 K/UL RBC (test code = 1002) 5.12 M/UL HEMOGLOBIN (test code = 1003) 14.6 G/DL HEMATOCRIT (test code = 1004) 41.8 % MCV (test code = 1005) 81.6 fL MCH (test code = 1006) 28.5 PG MCHC (test code = 1007) 34.9 G/DL RDW (test code = 1038) 13.0 % NEUTROPHILS (test code = 1008) 69.1 % LYMPHOCYTES (test code = 1010) 22.2 % MONOCYTES (test code = 1011) 6.4 % EOSINOPHILS (test code = 1012) 1.6 % BASOPHILS (test code = 1013) 0.6 % IMMATURE GRANULOCYTES (test 0.1 % code = 1036) NUCLEATED RBCS (test code = 0.0 /100WBC'S 1065) PLATELET COUNT (test code = 254 K/UL 1015) ABSOLUTE NEUTROPHILS (test code 4.88 K/UL = 1066) ABSOLUTE LYMPHOCYTES (test code 1.57 K/UL = 1067) ABSOLUTE MONOCYTES (test code = 0.45 K/UL 1068) ABSOLUTE EOSINOPHILS (test code 0.11 K/UL = 1040) ABSOLUTE BASOPHILS (test code = 0.04 K/UL 1069) ABS IMMATURE GRANULOCYTES (test 0.01 K/UL code = 1020) ABS NUCLEATED RBCS (test code = 0.00 K/UL 06651) LIPID [id number] 00:00:00 Test Item Value Reference Range Interpretation Comments CHOLESTEROL (test code = 2210) 166 MG/DL TRIGLYCERIDES (test code = 2232) 51 MG/DL HDL CHOLESTEROL (test code = 2220) 57 MG/DL CALC LDL CHOL (test code = 2237) 96 MG/DL RISK RATIO LDL/HDL (test code = 1.68 RATIO 2238) HEMOGLOBIN [id number] 00:00:00 Test Item Value Reference Range Interpretation Comments HEMOGLOBIN A1c (test code = 38738) 5.3 % HEMOGLOBIN [id number] 00:00:00 Test Item Value Reference Range Interpretation Comments HEMOGLOBIN A1c (test code = 85877) 5.3 % [id number] 00:00:00 Test Item Value Reference Range Interpretation Comments RPR RESULT (test code = NON-REACTIVE 3501) RPR TITER (test code = 3500) NOT INDIC. TITER [id number] 00:00:00 Test Item Value Reference Range Interpretation Comments RPR RESULT (test code = NON-REACTIVE 3501) RPR TITER (test code = 3500) NOT INDIC. TITER HIV AB/AG COMBO RFLX [id number] 00:00:00 Test Item Value Reference Range Interpretation Comments HIV 1/2 4TH GEN, RFLX CONF (test NON-REACTIVE code = 3514) ACUTE HEPATITIS [id number] 00:00:00 Test Item Value Reference Range Interpretation Comments HEPATITIS A IgM (test code = NON-REACTIVE 54403) HEPATITIS B CORE IgM (test code NON-REACTIVE = 8244) HEPATITIS B SURF AG (test code = NON-REACTIVE 7340) HEPATITIS C ANTIBODY (test code NON-REACTIVE = 6772) INTERPRETATION HEPATITIS A: (NOTE) (test code = 2552) INTERPRETATION HEPATITIS B: (NOTE) (test code = 91027) INTERPRETATION HEPATITIS C: (NOTE) (test code = 87217) COMPREHENSIVE METABOLIC [id number] 00:00:00 Test Item Value Reference Range Interpretation Comments GLUCOSE (test code = 2217) 86 MG/DL BUN (test code = 2208) 7 MG/DL CREATININE (test code = 2214) 0.69 MG/DL eGFR (2020 CKD-EPI) (test 120 ML/MIN/1.73 code = 71686) CALC BUN/CREAT (test code = 10 RATIO 2235) SODIUM (test code = 2231) 142 MEQ/L POTASSIUM (test code = 2228) 3.9 MEQ/L CHLORIDE (test code = 2215) 100 MEQ/L CARBON DIOXIDE (test code = 24 MEQ/L 2205) CALCIUM (test code = 2209) 10.0 MG/DL PROTEIN, TOTAL (test code = 8.1 G/DL 2228) ALBUMIN (test code = 2201) 5.3 G/DL CALC GLOBULIN (test code = 2.8 G/DL 0) CALC A/G RATIO (test code = 1.9 RATIO 2233) BILIRUBIN, TOTAL (test code = 0.8 MG/DL 2206) ALKALINE PHOSPHATASE (test 58 U/L code = 2204) AST (test code = 2218) 18 U/L ALT (test code = 2219) 12 U/L CBC W/AUTO [id number] 00:00:00 Test Item Value Reference Range Interpretation Comments WBC (test code = 1001) 7.1 K/UL RBC (test code = 1002) 5.12 M/UL HEMOGLOBIN (test code = 1003) 14.6 G/DL HEMATOCRIT (test code = 1004) 41.8 % MCV (test code = 1005) 81.6 fL MCH (test code = 1006) 28.5 PG MCHC (test code = 1007) 34.9 G/DL RDW (test code = 1038) 13.0 % NEUTROPHILS (test code = 1008) 69.1 % LYMPHOCYTES (test code = 1010) 22.2 % MONOCYTES (test code = 1011) 6.4 % EOSINOPHILS (test code = 1012) 1.6 % BASOPHILS (test code = 1013) 0.6 % IMMATURE GRANULOCYTES (test 0.1 % code = 1036) NUCLEATED RBCS (test code = 0.0 /100WBC'S 1065) PLATELET COUNT (test code = 254 K/UL 1015) ABSOLUTE NEUTROPHILS (test code 4.88 K/UL = 1066) ABSOLUTE LYMPHOCYTES (test code 1.57 K/UL = 1067) ABSOLUTE MONOCYTES (test code = 0.45 K/UL 1068) ABSOLUTE EOSINOPHILS (test code 0.11 K/UL = 1040) ABSOLUTE BASOPHILS (test code = 0.04 K/UL 1069) ABS IMMATURE GRANULOCYTES (test 0.01 K/UL code = 1020) ABS NUCLEATED RBCS (test code = 0.00 K/UL 95063) CBC W/AUTO [id number] 00:00:00 Test Item Value Reference Range Interpretation Comments WBC (test code = 1001) 7.1 K/UL RBC (test code = 1002) 5.12 M/UL HEMOGLOBIN (test code = 1003) 14.6 G/DL HEMATOCRIT (test code = 1004) 41.8 % MCV (test code = 1005) 81.6 fL MCH (test code = 1006) 28.5 PG MCHC (test code = 1007) 34.9 G/DL RDW (test code = 1038) 13.0 % NEUTROPHILS (test code = 1008) 69.1 % LYMPHOCYTES (test code = 1010) 22.2 % MONOCYTES (test code = 1011) 6.4 % EOSINOPHILS (test code = 1012) 1.6 % BASOPHILS (test code = 1013) 0.6 % IMMATURE GRANULOCYTES (test 0.1 % code = 1036) NUCLEATED RBCS (test code = 0.0 /100WBC'S 1065) PLATELET COUNT (test code = 254 K/UL 1015) ABSOLUTE NEUTROPHILS (test code 4.88 K/UL = 1066) ABSOLUTE LYMPHOCYTES (test code 1.57 K/UL = 1067) ABSOLUTE MONOCYTES (test code = 0.45 K/UL 1068) ABSOLUTE EOSINOPHILS (test code 0.11 K/UL = 1040) ABSOLUTE BASOPHILS (test code = 0.04 K/UL 1069) ABS IMMATURE GRANULOCYTES (test 0.01 K/UL code = 1020) ABS NUCLEATED RBCS (test code = 0.00 K/UL 13356) BUPRENORPHINE, QUANT, URINE [REFLEX]2020-10-18 00:00:00 Test Item Value Reference Range Interpretation Comments BUPRENORPHINE INTERP (test code = Positive 36938) BUPRENORPHINE QNT (test code = >500 ng/mL 76187) OPIATE, QUANT, URINE [REFLEX]2020-10-18 00:00:00 Test Item Value Reference Range Interpretation Comments MORPHINE INTERP (test code = 21637) Negative MORPHINE QNT (test code = 64494) <50 ng/mL OXYMORPHONE INTERP (test code = Negative 24410) OXYMORPHONE QNT (test code = 05192) <50 ng/mL HYDROMORPHONE INTERP (test code = Negative 028641) HYDROMORPHONE QNT (test code = <50 ng/mL 015873) CODEINE INTERP (test code = 29297) Negative CODEINE QNT (test code = 51162) <50 ng/mL OXYCODONE INTERP (test code = Negative 159461) OXYCODONE QNT (test code = 898206) <50 ng/mL HYDROCODONE INTERP (test code = Negative 95688) HYDROCODONE QNT (test code = 91661) <50 ng/mL 6-ACETYLMORPHINE INTERP (test code Negative = 422107) 6-ACETYLMORPHINE QNT (test code = <10 ng/mL 018232) BUPRENORPHINE, QUANT, URINE [REFLEX]2020-10-18 00:00:00 Test Item Value Reference Range Interpretation Comments BUPRENORPHINE INTERP (test code = Positive 66650) BUPRENORPHINE QNT (test code = >500 ng/mL 45658) OPIATE, QUANT, URINE [REFLEX]2020-10-18 00:00:00 Test Item Value Reference Range Interpretation Comments MORPHINE INTERP (test code = 91886) Negative MORPHINE QNT (test code = 46868) <50 ng/mL OXYMORPHONE INTERP (test code = Negative 15371) OXYMORPHONE QNT (test code = 95550) <50 ng/mL HYDROMORPHONE INTERP (test code = Negative 708690) HYDROMORPHONE QNT (test code = <50 ng/mL 721076) CODEINE INTERP (test code = 54521) Negative CODEINE QNT (test code = 22826) <50 ng/mL OXYCODONE INTERP (test code = Negative 646018) OXYCODONE QNT (test code = 245371) <50 ng/mL HYDROCODONE INTERP (test code = Negative 89047) HYDROCODONE QNT (test code = 51725) <50 ng/mL 6-ACETYLMORPHINE INTERP (test code Negative = 783932) 6-ACETYLMORPHINE QNT (test code = <10 ng/mL 954624) DRUG ABUSE PANEL 10 WITH [id number] 00:00:00 Test Item Value Reference Range Interpretation Comments AMPHETAMINES (test code = NEGATIVE 3201) BARBITURATES (test code = NEGATIVE 3202) BENZODIAZEPINES (test code NEGATIVE = 3203) CANNABINOIDS (test code = NEGATIVE 3204) COCAINE METABOLITE (test NEGATIVE code = 3205) OPIATES (test code = 3209) NEGATIVE OXYCODONE (test code = SEE REFLEX TESTING 69875) PHENCYCLIDINE (test code = NEGATIVE 3210) METHADONE (test code = NEGATIVE 3207) BUPRENORPHINE (test code = SEE REFLEX TESTING 77345) DRUG ABUSE PANEL 10 WITH [id number] 00:00:00 Test Item Value Reference Range Interpretation Comments AMPHETAMINES (test code = NEGATIVE 3201) BARBITURATES (test code = NEGATIVE 3202) BENZODIAZEPINES (test code NEGATIVE = 3203) CANNABINOIDS (test code = NEGATIVE 3204) COCAINE METABOLITE (test NEGATIVE code = 3205) OPIATES (test code = 3209) NEGATIVE OXYCODONE (test code = SEE REFLEX TESTING 09001) PHENCYCLIDINE (test code = NEGATIVE 3210) METHADONE (test code = NEGATIVE 3207) BUPRENORPHINE (test code = SEE REFLEX TESTING 24857) BENZODIAZEPINE, QUANT, URINE [REFLEX]2020-05-19 00:00:00 Test Item Value Reference Range Interpretation Comments HYDROXYALPRAZOLAM INTERP (test Negative code = 86040) HYDROXYALPRAZOLAM QNT (test code = <50 ng/mL 962946) LORAZEPAM INTERP (test code = Negative 29765) LORAZEPAM QNT (test code = 93227) <50 ng/mL OXAZEPAM INTERP (test code = Negative 21364) OXAZEPAM QNT (test code = 92958) <50 ng/mL TEMAZEPAM INTERP (test code = Negative 884659) TEMAZEPAM QNT (test code = 796769) <50 ng/mL NORDIAZEPAM INTERP (test code = Negative 53975) NORDIAZEPAM QNT (test code = <50 ng/mL 21232) GV-MMNQT-AHYKXERIEY INTERP (test Negative code = 984189) AW-KMVWS-CQGUEPPZNK QNT (test code <50 ng/mL = 617414) 7-AMINOCLONAZEPAM INTERP (test Positive code = 837394) 7-AMINOCLONAZEPAM QNT (test code = 1940 ng/mL 961990) 7-AMINOFLUNITRAZEPAM INTERP (test Negative code = 657712) 7-AMINOFLUNITRAZEPAM QNT (test <50 ng/mL code = 019969) HYDROXYTRIAZOLAM INTERP (test code Negative = 447483) HYDROXYTRIAZOLAM QNT (test code = <50 ng/mL 963772) AMPHETAMINES, QUANT, URINE [REFLEX]2020-05-19 00:00:00 Test Item Value Reference Range Interpretation Comments AMPHETAMINE INTERP (test code = Positive 33678) AMPHETAMINE QNT (test code = >5000 ng/mL 29215) METHAMPHETAMINE INTERP (test code Positive = 77381) METHAMPHETAMINE QNT (test code = >5000 ng/mL 64629) MDA INTERP (test code = 45146) Negative MDA QNT (test code = 19477) <50 ng/mL MDMA INTERP (test code = 180584) Negative MDMA QNT (test code = 340064) <50 ng/mL BENZODIAZEPINE, QUANT, URINE [REFLEX]2020-05-19 00:00:00 Test Item Value Reference Range Interpretation Comments HYDROXYALPRAZOLAM INTERP (test Negative code = 97567) HYDROXYALPRAZOLAM QNT (test code = <50 ng/mL 879384) LORAZEPAM INTERP (test code = Negative 08506) LORAZEPAM QNT (test code = 45765) <50 ng/mL OXAZEPAM INTERP (test code = Negative 61421) OXAZEPAM QNT (test code = 66098) <50 ng/mL TEMAZEPAM INTERP (test code = Negative 301934) TEMAZEPAM QNT (test code = 168427) <50 ng/mL NORDIAZEPAM INTERP (test code = Negative 77309) NORDIAZEPAM QNT (test code = <50 ng/mL 32658) [id number] INTERP (test Negative code = 947780) WL-ABVGW-YPLTFVOPCX QNT (test code <50 ng/mL = 940636) 7-AMINOCLONAZEPAM INTERP (test Positive code = 047734) 7-AMINOCLONAZEPAM QNT (test code = 1940 ng/mL 087907) 7-AMINOFLUNITRAZEPAM INTERP (test Negative code = 911171) 7-AMINOFLUNITRAZEPAM QNT (test <50 ng/mL code = 547650) HYDROXYTRIAZOLAM INTERP (test code Negative = 676451) HYDROXYTRIAZOLAM QNT (test code = <50 ng/mL 468484) AMPHETAMINES, QUANT, URINE [REFLEX]2020-05-19 00:00:00 Test Item Value Reference Range Interpretation Comments AMPHETAMINE INTERP (test code = Positive 12836) AMPHETAMINE QNT (test code = >5000 ng/mL 74917) METHAMPHETAMINE INTERP (test code Positive = 07863) METHAMPHETAMINE QNT (test code = >5000 ng/mL 84134) MDA INTERP (test code = 46926) Negative MDA QNT (test code = 68961) <50 ng/mL MDMA INTERP (test code = 881776) Negative MDMA QNT (test code = 347422) <50 ng/mL DRUG ABUSE SCREEN 10 REFLEX CONFIRM [ADDED]2020-05-16 00:00:00 Test Item Value Reference Range Interpretation Comments AMPHETAMINES (test code = SEE REFLEX TESTING 3201) BARBITURATES (test code = NEGATIVE 3202) BENZODIAZEPINES (test code SEE REFLEX TESTING = 3203) CANNABINOIDS (test code = NEGATIVE 3204) COCAINE METABOLITE (test NEGATIVE code = 3205) OPIATES (test code = 3209) NEGATIVE OXYCODONE (test code = NEGATIVE 89883) PHENCYCLIDINE (test code = NEGATIVE 3210) METHADONE (test code = NEGATIVE 3207) BUPRENORPHINE (test code = NEGATIVE 65446) DRUG ABUSE SCREEN 10 REFLEX CONFIRM [ADDED]2020-05-16 00:00:00 Test Item Value Reference Range Interpretation Comments AMPHETAMINES (test code = SEE REFLEX TESTING 3201) BARBITURATES (test code = NEGATIVE 3202) BENZODIAZEPINES (test code SEE REFLEX TESTING = 3203) CANNABINOIDS (test code = NEGATIVE 3204) COCAINE METABOLITE (test NEGATIVE code = 3205) OPIATES (test code = 3209) NEGATIVE OXYCODONE (test code = NEGATIVE 92625) PHENCYCLIDINE (test code = NEGATIVE 3210) METHADONE (test code = NEGATIVE 3207) BUPRENORPHINE (test code = NEGATIVE 14859) BUPRENORPHINE AND [id number] 00:00:00 Test Item Value Reference Range Interpretation Comments NORBUPRENORPHINE (test code = <1.0 ng/mL 44551) BUPRENORPHINE (test code = 24395) <1.0 ng/mL BUPRENORPHINE AND [id number] 00:00:00 Test Item Value Reference Range Interpretation Comments NORBUPRENORPHINE (test code = <1.0 ng/mL 66365) BUPRENORPHINE (test code = 44168) <1.0 ng/mL DRUG SCREEN, [id number] 00:00:00 Test Item Value Reference Range Interpretation Comments AMPHETAMINES (test code = 25852) Positive BARBITURATES (test code = 05402) Negative BENZODIAZEPINES (test code = 07248) Negative COCAINE METABOLITE (test code = Negative 45122) METHADONE (test code = 95095) Negative OPIATES (test code = 324862) Negative PHENCYCLIDINE (test code = 360483) Negative PROPOXYPHENE (test code = 812715) Negative THC (CANNABIS) (test code = 230431) Negative ETHANOL (test code = 062452) Negative DRUG SCREEN, [id number] 00:00:00 Test Item Value Reference Range Interpretation Comments AMPHETAMINES (test code = 69691) Positive BARBITURATES (test code = 74945) Negative BENZODIAZEPINES (test code = 04887) Negative COCAINE METABOLITE (test code = Negative 58708) METHADONE (test code = 97724) Negative OPIATES (test code = 382581) Negative PHENCYCLIDINE (test code = 308044) Negative PROPOXYPHENE (test code = 782291) Negative THC (CANNABIS) (test code = 729721) Negative ETHANOL (test code = 870459) Negative DRUG ABUSE PANEL 10 WITH [id number] 00:00:00 Test Item Value Reference Range Interpretation Comments AMPHETAMINES (test code = 3201) NEGATIVE BARBITURATES (test code = 3202) NEGATIVE BENZODIAZEPINES (test code = 3203) NEGATIVE CANNABINOIDS (test code = 3204) NEGATIVE COCAINE METABOLITE (test code = NEGATIVE 3205) OPIATES (test code = 3209) NEGATIVE OXYCODONE (test code = 99626) NEGATIVE PHENCYCLIDINE (test code = 3210) NEGATIVE METHADONE (test code = 3207) NEGATIVE BUPRENORPHINE (test code = 11282) NEGATIVE DRUG ABUSE PANEL 10 WITH [id number] 00:00:00 Test Item Value Reference Range Interpretation Comments AMPHETAMINES (test code = 3201) NEGATIVE BARBITURATES (test code = 3202) NEGATIVE BENZODIAZEPINES (test code = 3203) NEGATIVE CANNABINOIDS (test code = 3204) NEGATIVE COCAINE METABOLITE (test code = NEGATIVE 3205) OPIATES (test code = 3209) NEGATIVE OXYCODONE (test code = 98530) NEGATIVE PHENCYCLIDINE (test code = 3210) NEGATIVE METHADONE (test code = 3207) NEGATIVE BUPRENORPHINE (test code = 25723) NEGATIVE DRUG ABUSE PANEL 10 WITH [id number] 00:00:00 Test Item Value Reference Range Interpretation Comments AMPHETAMINES (test code = 3201) NEGATIVE BARBITURATES (test code = 3202) NEGATIVE BENZODIAZEPINES (test code = 3203) NEGATIVE CANNABINOIDS (test code = 3204) NEGATIVE COCAINE METABOLITE (test code = NEGATIVE 3205) OPIATES (test code = 3209) NEGATIVE OXYCODONE (test code = 11371) NEGATIVE PHENCYCLIDINE (test code = 3210) NEGATIVE METHADONE (test code = 3207) NEGATIVE BUPRENORPHINE (test code = 89205) NEGATIVE DRUG ABUSE PANEL 10 WITH [id number] 00:00:00 Test Item Value Reference Range Interpretation Comments AMPHETAMINES (test code = 3201) NEGATIVE BARBITURATES (test code = 3202) NEGATIVE BENZODIAZEPINES (test code = 3203) NEGATIVE CANNABINOIDS (test code = 3204) NEGATIVE COCAINE METABOLITE (test code = NEGATIVE 3205) OPIATES (test code = 3209) NEGATIVE OXYCODONE (test code = 29469) NEGATIVE PHENCYCLIDINE (test code = 3210) NEGATIVE METHADONE (test code = 3207) NEGATIVE BUPRENORPHINE (test code = 52247) NEGATIVE COCAINE METAB, QUANT, URINE [REFLEX]2019-05-14 00:00:00 Test Item Value Reference Range Interpretation Comments BENZOYLECGONINE INTERP (test code = Positive 85859) BENZOYLECGONINE QNT (test code = 488 ng/mL 87347) AMPHETAMINES, QUANT, URINE [REFLEX]2019-05-14 00:00:00 Test Item Value Reference Range Interpretation Comments AMPHETAMINE INTERP (test code = Positive 11355) AMPHETAMINE QNT (test code = >5000 ng/mL 48048) METHAMPHETAMINE INTERP (test code Positive = 12970) METHAMPHETAMINE QNT (test code = >5000 ng/mL 46961) MDA INTERP (test code = 66486) Negative MDA QNT (test code = 57736) <50 ng/mL MDMA INTERP (test code = 997582) Negative MDMA QNT (test code = 276750) <50 ng/mL COCAINE METAB, QUANT, URINE [REFLEX]2019-05-14 00:00:00 Test Item Value Reference Range Interpretation Comments BENZOYLECGONINE INTERP (test code = Positive 76133) BENZOYLECGONINE QNT (test code = 488 ng/mL 41764) AMPHETAMINES, QUANT, URINE [REFLEX]2019-05-14 00:00:00 Test Item Value Reference Range Interpretation Comments AMPHETAMINE INTERP (test code = Positive 44282) AMPHETAMINE QNT (test code = >5000 ng/mL 55093) METHAMPHETAMINE INTERP (test code Positive = 07093) METHAMPHETAMINE QNT (test code = >5000 ng/mL 03103) MDA INTERP (test code = 03909) Negative MDA QNT (test code = 37236) <50 ng/mL MDMA INTERP (test code = 595388) Negative MDMA QNT (test code = 227999) <50 ng/mL CBC W/AUTO [id number] 00:00:00 Test Item Value Reference Range Interpretation Comments WBC (test code = 1001) 7.7 K/UL RBC (test code = 1002) 4.89 M/UL HEMOGLOBIN (test code = 1003) 14.2 G/DL HEMATOCRIT (test code = 1004) 41.3 % MCV (test code = 1005) 84.5 fL MCH (test code = 1006) 29.0 PG MCHC (test code = 1007) 34.4 G/DL RDW (test code = 1038) 13.0 % NEUTROPHILS (test code = 1008) 72.9 % LYMPHOCYTES (test code = 1010) 18.0 % MONOCYTES (test code = 1011) 7.0 % EOSINOPHILS (test code = 1012) 1.6 % BASOPHILS (test code = 1013) 0.5 % PLATELET COUNT (test code = 1015) 301 K/UL COMPREHENSIVE METABOLIC [id number] 00:00:00 Test Item Value Reference Range Interpretation Comments GLUCOSE (test code = 2217) 101 MG/DL BUN (test code = 2208) 11 MG/DL CREATININE (test code = 2214) 0.71 MG/DL eGFR AMER. (test code 139 ML/MIN/1.73 = 49584) eGFR NON- AMER. (test 120 ML/MIN/1.73 code = 99324) CALC BUN/CREAT (test code = 15 RATIO 2235) SODIUM (test code = 2231) 144 MEQ/L POTASSIUM (test code = 2228) 4.2 MEQ/L CHLORIDE (test code = 2215) 105 MEQ/L CARBON DIOXIDE (test code = 26 MEQ/L 220) CALCIUM (test code = 2209) 9.5 MG/DL PROTEIN, TOTAL (test code = 7.7 G/DL 2228) ALBUMIN (test code = 2201) 4.8 G/DL CALC GLOBULIN (test code = 2.9 G/DL 2240) CALC A/G RATIO (test code = 1.7 RATIO 2234) BILIRUBIN, TOTAL (test code = 0.4 MG/DL 2206) ALKALINE PHOSPHATASE (test 45 U/L code = 2204) AST (test code = 2218) 10 U/L ALT (test code = 2219) 7 U/L HEPATITIS A IgM [REFLEX]2019-05-11 00:00:00 Test Item Value Reference Range Interpretation Comments HEPATITIS A IgM (test code = NON-REACTIVE 2728) DRUG ABUSE PANEL 10 WITH [id number] 00:00:00 Test Item Value Reference Range Interpretation Comments AMPHETAMINES (test code = SEE REFLEX TESTING 3201) BARBITURATES (test code = NEGATIVE 3202) BENZODIAZEPINES (test code NEGATIVE = 3203) CANNABINOIDS (test code = NEGATIVE 3204) COCAINE METABOLITE (test SEE REFLEX TESTING code = 3205) OPIATES (test code = 3209) NEGATIVE OXYCODONE (test code = NEGATIVE 88523) PHENCYCLIDINE (test code = NEGATIVE 3210) METHADONE (test code = NEGATIVE 3207) BUPRENORPHINE (test code = NEGATIVE 53736) HEPATITIS PROFILE (A,B,C)2019-05-11 00:00:00 Test Item Value Reference Range Interpretation Comments HEPATITIS A TOTAL AB (test code REACTIVE = 2725) HEPATITIS B SURF AG (test code = NON-REACTIVE 2739) HEP B CORE TOTAL AB (test code = NON-REACTIVE 2729) HEPATITIS B SURFACE AB (test NON-REACTIVE code = 2737) HEPATITIS C ANTIBODY (test code NON-REACTIVE = 4675) INTERPRETATION HEPATITIS A: (NOTE) (test code = 2552) INTERPRETATION HEPATITIS B: (NOTE) (test code = 04429) INTERPRETATION HEPATITIS C: (NOTE) (test code = 22354) CBC W/AUTO [id number] 00:00:00 Test Item Value Reference Range Interpretation Comments WBC (test code = 1001) 7.7 K/UL RBC (test code = 1002) 4.89 M/UL HEMOGLOBIN (test code = 1003) 14.2 G/DL HEMATOCRIT (test code = 1004) 41.3 % MCV (test code = 1005) 84.5 fL MCH (test code = 1006) 29.0 PG MCHC (test code = 1007) 34.4 G/DL RDW (test code = 1038) 13.0 % NEUTROPHILS (test code = 1008) 72.9 % LYMPHOCYTES (test code = 1010) 18.0 % MONOCYTES (test code = 1011) 7.0 % EOSINOPHILS (test code = 1012) 1.6 % BASOPHILS (test code = 1013) 0.5 % PLATELET COUNT (test code = 1015) 301 K/UL CBC W/AUTO [id number] 00:00:00 Test Item Value Reference Range Interpretation Comments WBC (test code = 1001) 7.7 K/UL RBC (test code = 1002) 4.89 M/UL HEMOGLOBIN (test code = 1003) 14.2 G/DL HEMATOCRIT (test code = 1004) 41.3 % MCV (test code = 1005) 84.5 fL MCH (test code = 1006) 29.0 PG MCHC (test code = 1007) 34.4 G/DL RDW (test code = 1038) 13.0 % NEUTROPHILS (test code = 1008) 72.9 % LYMPHOCYTES (test code = 1010) 18.0 % MONOCYTES (test code = 1011) 7.0 % EOSINOPHILS (test code = 1012) 1.6 % BASOPHILS (test code = 1013) 0.5 % PLATELET COUNT (test code = 1015) 301 K/UL COMPREHENSIVE METABOLIC [id number] 00:00:00 Test Item Value Reference Range Interpretation Comments GLUCOSE (test code = 2217) 101 MG/DL BUN (test code = 2208) 11 MG/DL CREATININE (test code = 2214) 0.71 MG/DL eGFR AMER. (test code 139 ML/MIN/1.73 = 25130) eGFR NON- AMER. (test 120 ML/MIN/1.73 code = 57879) CALC BUN/CREAT (test code = 15 RATIO 2235) SODIUM (test code = 2231) 144 MEQ/L POTASSIUM (test code = 2228) 4.2 MEQ/L CHLORIDE (test code = 2215) 105 MEQ/L CARBON DIOXIDE (test code = 26 MEQ/L 2206) CALCIUM (test code = 2209) 9.5 MG/DL PROTEIN, TOTAL (test code = 7.7 G/DL 2228) ALBUMIN (test code = 2201) 4.8 G/DL CALC GLOBULIN (test code = 2.9 G/DL 2240) CALC A/G RATIO (test code = 1.7 RATIO 2234) BILIRUBIN, TOTAL (test code = 0.4 MG/DL 2206) ALKALINE PHOSPHATASE (test 45 U/L code = 2204) AST (test code = 2218) 10 U/L ALT (test code = 2219) 7 U/L HEPATITIS A IgM [REFLEX]2019-05-11 00:00:00 Test Item Value Reference Range Interpretation Comments HEPATITIS A IgM (test code = NON-REACTIVE 2727) DRUG ABUSE PANEL 10 WITH [id number] 00:00:00 Test Item Value Reference Range Interpretation Comments AMPHETAMINES (test code = SEE REFLEX TESTING 3201) BARBITURATES (test code = NEGATIVE 3202) BENZODIAZEPINES (test code NEGATIVE = 3203) CANNABINOIDS (test code = NEGATIVE 3204) COCAINE METABOLITE (test SEE REFLEX TESTING code = 3205) OPIATES (test code = 3209) NEGATIVE OXYCODONE (test code = NEGATIVE 11924) PHENCYCLIDINE (test code = NEGATIVE 3210) METHADONE (test code = NEGATIVE 3207) BUPRENORPHINE (test code = NEGATIVE 98744) HEPATITIS PROFILE (A,B,C)2019-05-11 00:00:00 Test Item Value Reference Range Interpretation Comments HEPATITIS A TOTAL AB (test code REACTIVE = 2725) HEPATITIS B SURF AG (test code = NON-REACTIVE 2739) HEP B CORE TOTAL AB (test code = NON-REACTIVE 2729) HEPATITIS B SURFACE AB (test NON-REACTIVE code = 2737) HEPATITIS C ANTIBODY (test code NON-REACTIVE = 4675) INTERPRETATION HEPATITIS A: (NOTE) (test code = 2552) INTERPRETATION HEPATITIS B: (NOTE) (test code = 42952) INTERPRETATION HEPATITIS C: (NOTE) (test code = 81076) CBC W/AUTO [id number] 00:00:00 Test Item Value Reference Range Interpretation Comments WBC (test code = 1001) 7.7 K/UL RBC (test code = 1002) 4.89 M/UL HEMOGLOBIN (test code = 1003) 14.2 G/DL HEMATOCRIT (test code = 1004) 41.3 % MCV (test code = 1005) 84.5 fL MCH (test code = 1006) 29.0 PG MCHC (test code = 1007) 34.4 G/DL RDW (test code = 1038) 13.0 % NEUTROPHILS (test code = 1008) 72.9 % LYMPHOCYTES (test code = 1010) 18.0 % MONOCYTES (test code = 1011) 7.0 % EOSINOPHILS (test code = 1012) 1.6 % BASOPHILS (test code = 1013) 0.5 % PLATELET COUNT (test code = 1015) 301 K/UL
[2022-05-22] MEDS ORDERED: ASPIRIN 81 MG CHEWABLE TABLET ONE ×2 (19:30→19:34)
[2022-05-22 19:45] LABS: Absolute Lymphocytes (CBC) 1.5 K/uL (0.7-4.9); Hematocrit 41.3 % (39.6-49.0); Lymphocytes % 26.1 % (15.3-44.8); MCV 83.2 fL (80-100); MPV 7.9 fL (7.6-11.3); RBC Red Blood Cell Count 4.97 M/uL (4.33-5.43)
[2022-05-22 20:04] LABS: Potassium 3.4 mmol/L (3.5-5.1); Troponin High Sensitivity 3.9 pg/mL (<58.9)
--- NOTE | 2022-05-22 20:47 | RAD REPORT ---
EXAM DESCRIPTION: Bhavna Single View05/22/2022 8:15 pm CLINICAL HISTORY: Chest pain COMPARISON: 2018 FINDINGS: The lungs appear clear of acute infiltrate. The heart is normal size IMPRESSION: No acute abnormalities displayed
--- NOTE | 2022-05-22 20:55 | EDPHYS ---
Physician Documentation [facility] Name: Kervin Alarcon Age: 42 yrs Sex: Male : 1980 Arrival Date: 05/22/2022 Time: 19:14 Bed 8 Private MD: ED Physician All Caputo HPI: 05/22 19:22 This 42 yrs old Male presents to ER via Unassigned with complaints of Chest Pain. ms3 19:22 42 yo male with no pmh presents with intermittent sharp chest pain that began at 11 am. ms3 Patient states that the pain only lasts seconds when it comes. Patient states the pain is a 10/10 when present. Patient denies pain at this time. Patient denies nausea, vomiting, sweating. Patient endorses shortness of breath. Patient denies alleviating or inciting factors.. Historical: - Allergies: 20:30 No Known Allergies; ll3 - PMHx: 20:30 Anxiety; Depression; ll3 - Immunization history:: Client reports having NOT received the Covid vaccine. - Social history:: Smoking status: Patient denies any tobacco usage or history of. ROS: 19:22 Constitutional: Negative for fever, and chills. Neck: Negative for injury, pain, and ms3 swelling. 19:22 Respiratory: Negative for shortness of breath, cough, wheezing, and pleuritic chest pain, Abdomen/GI: Negative for abdominal pain, nausea, vomiting, diarrhea, and constipation, MS/Extremity: Negative for injury and deformity, Skin: Negative for injury, rash, and discoloration, Neuro: Negative for headache, weakness, numbness, tingling. 19:22 Cardiovascular: Positive for chest pain. Exam: 19:22 Constitutional: This is a well developed, well nourished patient who is awake, alert, ms3 and in no acute distress. Head/Face: Normocephalic, atraumatic. Neck: Trachea midline, no cervical lymphadenopathy. Supple, full range of motion without nuchal rigidity, or vertebral point tenderness. No Meningismus. Chest/axilla: Normal chest wall appearance and motion. Nontender with no deformity. Cardiovascular: Regular rate and rhythm with a normal S1 and S2. No gallops, murmurs, or rubs. Normal PMI, no JVD. No pulse deficits. Respiratory: Lungs have equal breath sounds bilaterally, clear to auscultation and percussion. No rales, rhonchi or wheezes noted. No increased work of breathing, no retractions or nasal flaring. Abdomen/GI: Soft, non-tender, with normal bowel sounds. No distension or tympany. No guarding or rebound. No evidence of tenderness throughout. Skin: Warm, dry with normal turgor. Normal color with no rashes, no lesions, and no evidence of cellulitis. 19:38 ECG was reviewed by the Attending Physician. ms3 Vital Signs: 19:25 BP 131 / 85; Pulse 76; Resp 16; Temp 98.6(O); Pulse Ox 100% on R/A; Weight 49.9 kg (R); ll3 Height 5 ft. 10 in. (177.80 cm) (R); Pain 0/10; 20:30 BP 116 / 82; Pulse 67; Resp 14; Pulse Ox 98% on R/A; jb4 19:25 Body Mass Index 15.78 (49.90 kg, 177.80 cm) ll3 MDM: 19:21 Patient medically screened. ms3 19:22 Differential diagnosis: abnormal EKG, acute myocardial infarction, anxiety, coronary ms3 artery disease chest wall pain, pulmonary embolus. 20:55 The patient was given aspirin in the Emergency Department. Data reviewed: vital signs, ms3 nurses notes, lab test result(s), EKG, radiologic studies, and as a result, I will discharge patient. Consideration of Admission/Observation Escalation of care including admission/observation considered. Troponin negative at this time. I considered the following discharge prescriptions or medication management in the emergency department Medications were administered in the Emergency Department. See MAR. Independent interpretation of the following test(s) in the Emergency Department EKG: See my EKG interpretation above clinical research monitor: rate is 78 beats/min, Rhythm is normal sinus rhythm, regular, with no ectopy, Interpretation: normal rate, normal rhythm. Historians other than the Patient: Spouse/Significant Other: . Counseling: I had a detailed discussion with the patient and/or guardian regarding: the historical points, exam findings, and any diagnostic results supporting the discharge/admit diagnosis, lab results, radiology results, the need for outpatient follow up, to return to the emergency department if symptoms worsen or persist or if there are any questions or concerns that arise at home. ED course: Discussed labs, EKG, chest x-ray findings with patient and his . Patient to follow-up with PCP in 2 to 3 days. Patient understands agrees with plan. Questions were answered. Return precautions discussed include worsening symptoms, or any other concerns. On reevaluation patient is alert and oriented x4, in no apparent distress, nontoxic, ambulatory in emergency department, speaking full sentences. 05/22 19:22 Order name: Basic Metabolic Panel; Complete Time: 20:26 ms3 05/22 19:22 Order name: CBC with Diff; Complete Time: 20:26 ms3 05/22 19:22 Order name: Magnesium; Complete Time: 20:26 ms3 05/22 19:22 Order name: Troponin HS; Complete Time: 20:26 ms3 05/22 19:22 Order name: XRAY Chest (1 view); Complete Time: 20:50 ms3 05/22 19:22 Order name: D-Dimer; Complete Time: 20:26 ms3 05/22 19:22 Order name: EKG; Complete Time: 19:23 ms3 05/22 19:22 Order name: Cardiac monitoring; Complete Time: 19:39 ms3 05/22 19:22 Order name: EKG - Nurse/Tech; Complete Time: 19:39 ms3 05/22 19:22 Order name: IV Saline Lock; Complete Time: 19:39 ms3 05/22 19:22 Order name: Labs collected and sent; Complete Time: 19:39 ms3 05/22 19:22 Order name: O2 Per Protocol; Complete Time: 19:39 ms3 05/22 19:22 Order name: O2 Sat Monitoring; Complete Time: 19:38 ms3 EC:38 Rate is 68 beats/min. Rhythm is regular. QRS [place] is Normal. IN interval is normal. QRS ms3 interval is normal. QT interval is normal. Clinical impression: Normal ECG. Interpreted by me. Reviewed by me. Administered Medications: 19:38 Drug: Aspirin Chewable Tablet 324 mg Route: PO; jb4 Disposition Summary: 05/22/22 20:54 Discharge Ordered Location: Home ms3 Condition: Stable ms3 Diagnosis - Chest pain, unspecified ms3 - Shortness of breath ms3 Followup: ms3 - With: Rodri Fernandes, - When: 2 - 3 days - Reason: Recheck today's complaints Discharge Instructions: - Discharge Summary Sheet ms3 - Nonspecific Chest Pain, Adult ms3 - Shortness of Breath, Adult ms3 Forms: - Medication Reconciliation Form ms3 - Thank You Letter ms3 - Antibiotic Education ms3 - Prescription Opioid Use ms3 Signatures: Dispatcher [employer] Mendoza Teixeira RN RN jb4 All Caputo DO DO ms3 Buddy Lopez RN RN ll3
--- NOTE | 2022-05-22 20:55 | ER ---
Nurse's Notes [facility] Name: Kervin Alarcon Age: 42 yrs Sex: Male : 1980 Arrival Date: 05/22/2022 Time: 19:14 Bed 8 Private MD: Diagnosis: Chest pain, unspecified;Shortness of breath Presentation: 05/22 19:25 Chief complaint: Patient states: Co chest pain off and on all day today, denies pain at ll3 this time. Coronavirus screen: Vaccine status: Patient reports being unvaccinated. At this time, the client does not indicate any symptoms associated with coronavirus-19. Ebola Screen: No symptoms or risks identified at this time. Initial Sepsis Screen: Does the patient meet any 2 criteria? No. Patient's initial sepsis screen is negative. Does the patient have a suspected source of infection? No. Patient's initial sepsis screen is negative. Risk Assessment: Do you want to hurt yourself or someone else? Patient reports no desire to harm self or others. Onset of symptoms was May 22, 2022. 19:25 Method Of Arrival: Ambulatory ll3 19:25 Acuity: MADDI 3 ll3 Historical: - Allergies: 20:30 No Known Allergies; ll3 - PMHx: 20:30 Anxiety; Depression; ll3 - Immunization history:: Client reports having NOT received the Covid vaccine. - Social history:: Smoking status: Patient denies any tobacco usage or history of. Screenin:30 [facility] ED Fall Risk Assessment (Adult) History of falling in the last 3 months, jb4 including since admission No falls in past 3 months (0 pts) Confusion or Disorientation No (0 pts) Intoxicated or Sedated No (0 pts) Impaired Gait No (0 pts) Mobility Assist Device Used No (0 pt) Altered Elimination No (0 pt) Score/Fall Risk Level 0 - 2 = Low Risk Oriented to surroundings, Maintained a safe environment. Abuse screen: Denies threats or abuse. Nutritional screening: No deficits noted. Tuberculosis screening: No symptoms or risk factors identified. Assessment: 19:30 General: Appears in no apparent distress. comfortable, Behavior is calm, cooperative, jb4 appropriate for age. Pain: Complains of pain in chest Pain does not radiate. Pain currently is 0 out of 10 on a pain scale. Quality of pain is described as stabbing, Pain began 2-3 days ago. Neuro: Level of Consciousness is awake, alert, obeys commands, Oriented to person, place, time, situation. Cardiovascular: Patient's skin is warm and dry. Respiratory: Airway is patent Respiratory effort is even, unlabored, Respiratory pattern is regular, symmetrical. GI: No signs and/or symptoms were reported involving the gastrointestinal system. : No signs and/or symptoms were reported regarding the genitourinary system. EENT: No signs and/or symptoms were reported regarding the EENT system. Derm: Skin is intact, Skin is pink, warm \T\ dry. Musculoskeletal: Circulation, motion, and sensation intact. Range of motion: intact in all extremities. 20:30 Reassessment: Patient appears in no apparent distress at this time. Patient and/or jb4 family updated on plan of care and expected duration. Pain level reassessed. Patient is alert, oriented x 3, equal unlabored respirations, skin warm/dry/pink. Vital Signs: 19:25 BP 131 / 85; Pulse 76; Resp 16; Temp 98.6(O); Pulse Ox 100% on R/A; Weight 49.9 kg (R); ll3 Height 5 ft. 10 in. (177.80 cm) (R); Pain 0/10; 20:30 BP 116 / 82; Pulse 67; Resp 14; Pulse Ox 98% on R/A; jb4 19:25 Body Mass Index 15.78 (49.90 kg, 177.80 cm) ll3 ED Course: 19:14 Patient arrived in ED. ja2 19:17 All Caputo DO is Attending Physician. ms3 19:25 Mendoza Crenshaw, KAIN is Primary Nurse. jb4 19:25 Arm band placed on. ll3 19:30 Initial lab(s) drawn, by or, sent to lab. Inserted saline lock: 18 gauge in right jb4 antecubital area, using aseptic technique. Blood collected. 19:30 Patient maintains SpO2 saturation greater than 95% on room air. jb4 19:30 Patient has correct armband on for positive identification. Bed in low position. Call [facility] light in reach. Side rails up X 1. Client placed on continuous cardiac and pulse oximetry monitoring. NIBP monitoring applied. marine equipment design engineer on. 19:39 Basic Metabolic Panel Sent. jb4 19:39 CBC with Diff Sent. jb4 19:39 Magnesium Sent. jb4 19:39 Troponin HS Sent. jb4 19:39 D-Dimer Sent. jb4 20:17 XRAY Chest (1 view) In Process Unspecified. EDMS 20:30 Triage completed. ll3 20:54 Rodri Fernandes DO is Referral Physician. ms3 21:06 No provider procedures requiring assistance completed. IV discontinued, intact, jb4 bleeding controlled, No redness/swelling at site. Pressure dressing applied. Administered Medications: 19:38 Drug: Aspirin Chewable Tablet 324 mg Route: PO; jb4 Outcome: 20:54 Discharge ordered by MD. ms3 21:06 Discharged to home ambulatory. jb4 21:06 Condition: stable 21:06 Discharge instructions given to patient, Instructed on discharge instructions, follow up and referral plans. Demonstrated understanding of instructions, follow-up care. 21:06 Patient left the ED. jb4 Signatures: Dispatcher [employer] EDMS Mendoza Crenshaw, RN RN jb4 All Caputo DO DO ms3 Shavon Acosta [place], RN RN ll3
[2022-05-22 21:59] VITALS: TEMP 98.6
[2022-05-22 22:02] VITALS: BP 116/82; O2SAT 98
--- NOTE | 2022-05-25 17:05 | EKG ---
Test Date: 2022-05-22 Test Time: 19:38:15 Tool And Gauge Inspector: BASIM MEASUREMENT RESULTS: Intervals: Rate: 68 TN: 170 QRSD: 94 QT: 406 QTc: 431 [place]: P: 80 TN: 170 QRS: 72 T: 96 INTERPRETIVE STATEMENTS: Normal sinus rhythm Normal ECG Compared to ECG 03/27/2019 23:45:33 No significant changes Electronically Signed On 05-25-22 16:58:31 METAL INSPECTOR by Andrés Sethi
== END 2022-05-22 21:06 | disposition home or self-care (01) ==
LOC: ER 19:14
DX: R07.89 Other chest pain (principal); R06.02 Shortness of breath
CPT/HCPCS: 36415; 71045; 80048; 83735; 84484; 85025; 85379; 93005; 99285

== ENCOUNTER 2022-06-07 14:17 | Emergency (ER) | payer OTHER ==
--- OUTSIDE RECORDS SUMMARY | 2022-06-07 14:23 | XMS REPORT | Continuity of Care Document ---
:1980 Author Organization [facility] t Address [address] [place] [address] Care Team Providers Name Role Phone EngLauren Everett Primary Care Physician [phone] Problems This patient has no known problems. [...] 2021-0 No Unknown 3-28 00:00: 00 Dose 2-0 No Unknown 3-28 00:00: 00 Dose 2-0 [...] 500 mg 9-29 capsule 00:00: 00 buprenorphi 2020-0 No 1mg ne 8 9-15 [...] 00:00: 2 mg 00 sublingual film buprenorphi 2021-0 No 1mg ne 8 6-25 mg-naloxone 00:00: 2 mg 00 sublingual film buprenorphi 2021-0 No 1mg ne 8 6-25 mg-naloxone 00:00: 2 mg 00 sublingual film buprenorphi 2021-0 No 1mg ne 8 5-27 mg-naloxone 00:00: 2 mg 00 sublingual film buprenorphi 2021-0 No 1mg ne 8 5-27 mg-naloxone 00:00: 2 mg 00 sublingual film Suboxone 4 1-0 No 1mg mg-1 mg 4-29 sublingual 00:00: film 00 Suboxone 4 2021-0 No 1mg mg-1 mg 4-29 sublingual 00:00: film 00 trazodone 2021-0 No 12mg 50 mg 3-31 tablet 00:00: 00 Suboxone 4 2021-0 No 1mg mg-1 mg 3-31 sublingual 00:00: film 00 trazodone 2021-0 No 12mg 50 mg 3-31 tablet 00:00: 00 Suboxone 4 2021-0 No 1mg mg-1 mg 3-31 sublingual 00:00: [...] 1mg mg-2 mg 0-16 sublingual 00:00: film 00 Suboxone 8 2020-0 [...] 1mg mg-2 mg 7-07 sublingual 00:00: film Suboxone 8 2020-0 No [...] Goal Plan of Care Note [code = 44527-3] Goal Plan of Care Note [code = 37194-7] Goal Plan of Care Note [code = 73215-8] Goal Plan of Care Note [code = 83260-9] Goal Plan of Care Note [code = 66259-3] Goal Plan of Care Note [code = 17399-9] Goal Plan of Care Note [code = 11566-6] Goal Plan of Care Note [code = 38799-0] Goal Plan of Care Note [code = 90671-5] Goal Plan of Care Note [code = 69595-3] Goal Plan of Care Note [code = 55807-2] Goal Plan of Care Note [code = 93623-4] Goal Plan of Care Note [code = 62305-5] Goal Plan of Care Note [code = 09803-3] Goal Plan of Care Note [code = 41278-3] Goal Plan of Care Note [code = 32769-0] Goal Plan of Care Note [code = 90559-8] Goal Plan of Care Note [code = 15116-6] Goal Plan of Care Note [code = 22920-5] Goal Plan of Care Note [code = 95483-9] Goal Plan of Care Note [code = 93912-1] Goal Plan of Care Note [code = 54941-0] Goal Plan of Care Note [code = 42383-2] Goal Plan of Care Note [code = 07163-0] Goal Plan of Care Note [code = 08826-0] Goal Plan of Care Note [code = 70699-3] Goal Plan of Care Note [code = 13223-6] Goal Plan of Care Note [code = 63238-8] Goal Plan of Care Note [code = 82043-5] Goal Plan of Care Note [code = 16825-4] Goal Plan of Care Note [code = 06659-5] Goal Plan of Care Note [code = 80252-7] Goal Plan of Care Note [code = 25495-8] Goal Plan of Care Note [code = 85162-7] Goal Plan of Care Note [code = 58178-6] Goal Plan of Care Note [code = 25973-8] Goal Plan of Care Note [code = 84772-1] Goal Plan of Care Note [code = 52917-0] Goal Plan of Care Note [code = 15035-6] Encounters Start End Encounter Admission Attending Care Care Encounter Source Date/Time Date/Time Type Type Clinicians Facility Department ID 2022-06-07 2022-06-07 Outpatient SFA SFA [id number] [facility] 09:56:54 09:56:54 0213 [facility] 2022-04-29 2022-04-29 Outpatient SFA SFA [id number] [facility] 10:34:20 10:34:20 0105 F Douglas 2022-04-01 2022-04-01 Outpatient SFA SFA [id number] [facility] 11:24:40 11:24:40 1208 F Douglas 2022-03-04 2022-03-04 Outpatient SFA SFA [id number] [facility] 10:48:07 10:48:07 1110 F Douglas 2022-02-04 2022-02-04 Outpatient SFA SFA [id number] [facility] 10:52:30 10:52:30 1013 [facility] 2021-11-08 2021-11-08 Outpatient [id number] 00:00:00 00:00:00 Visit [id number] [id number]-9 -9l77-05p [id number] 2021-10-22 2021-10-22 Outpatient [id number] 00:00:00 00:00:00 Visit 3x3t-85q0 r0u-[id number] -838c-99a [id number] Results Test Description Test Time Test Comments Results Result Comments Source COMPREHENSIVE METABOLIC PANEL 2021-09-09 06:59:40 Test Item Value Reference Range Interpretation Comme nts GLUCOSE (test code = 2217) 86 MG/DL 70-99 BUN (test code = 2207) 7 MG/DL 6-20 CREATININE (test code = 0.69 MG/DL 0.80-1.40 L 2213) eGFR (2020 CKD-EPI) (test 120 ML/MIN/1.73 >60 code = 07231) CALC BUN/CREAT (test code = 10 RATIO 6-2234) SODIUM (test code = 2231) 142 MEQ/L 133-146 POTASSIUM (test code = 2228) 3.9 MEQ/L 3.5-5.4 CHLORIDE (test code = 2215) 100 MEQ/L 95-107 CARBON DIOXIDE (test code = 24 MEQ/L -2205) CALCIUM (test code = 2209) 10.0 MG/DL 8.5-10.5 PROTEIN, TOTAL (test code = 8.1 G/DL 6.1-8.3 2228) ALBUMIN (test code = 220) 5.3 G/DL 3.5-5.2 H CALC GLOBULIN (test [...] AST (test code = 2218) 18 U/L 9-50 ALT (test code = 2219) 12 U/L 5-50 LIPID [id number] 06:59:40 Test Item Value Reference Range Interpretation [...] , SEE CLIENT ANNOUNCE MENT AT [email or web address] RISK RATIO LDL/HDL 1.68 RATIO <3.55 (test code = 2238) HIV 1/2 4TH GEN, RFLX [id number] 04:19:34 Test Item Value Reference Range Interpretation Comments HIV 1/2 4TH GEN, RFLX CONF (test NON-REACTIVE NON-REACTIVE code = 3514) HEPATITIS PANEL, [id number] 04:19:34 Test Item Value Reference Range Interpretation Comments HEPATITIS A IgM (test NON-REACTIVE NON-REACTIVE code = 12488) HEPATITIS B CORE IgM NON-REACTIVE NON-REACTIVE (test code = 4644) HEPATITIS B SURF AG NON-REACTIVE NON-REACTIVE (test code = 2739) HEPATITIS C ANTIBODY NON-REACTIVE NON-REACTIVE (test code = 4675) INTERPRETATION (NOTE) Hepatitis A HEPATITIS A: (test serology shows no code = 2552) evidence of acu te hepatitis A. INTERPRETATION (NOTE) Hepatitis B HEPATITIS B: (test serology shows no code = 76047) evidence of ac dre hepatitis B and no indication of exposure to hepatitis B vir us in the previous si xto eight months. INTERPRETATION (NOTE) Hepatitis C HEPATITIS C: (test serology shows no code = 65061) evidence of ex posure to hepatitisC v irus at this time. I t can take up to 12 m onths after exposure tothe hepatitis C vir us for antibodies to become detectab le in the blood in ce rtain patients. UNLES S OTHERWISE INDIC ATED, ALL TESTING PERFORMED [facility], I [address]. [address] [place], [place] [id number] [place] [address] DIRECTOR: Azucena BLOOMIA NUMBER [id number] [facility] [place] [id number] 04:07:42 Test Item Value Reference Range Interpretation Comments RPR RESULT (test code = NON-REACTIVE NON-REACTIVE 3501) RPR TITER (test code = 3500) NOT INDIC. TITER NOT INDIC. CBC W/AUTO DIFF WITH [id number] 02:41:18 Test Item Value Reference Range Interpretation [...] RBCS 0.00 K/UL 0.00-0.11 (test code = 55316) HEMOGLOBIN [id number] 02:36:22 Test Item Value Reference Range Interpretation Comments HEMOGLOBIN A1c (test code = 52089) 5.3 % 4.2-5.6 LIPID [id number] 00:00:00 Test Item Value Reference Range Interpretation Comments CHOLESTEROL (test code = 2210) 166 MG/DL TRIGLYCERIDES (test code = 2232) 51 MG/DL HDL CHOLESTEROL (test code = 2220) 57 MG/DL CALC LDL CHOL (test code = 2237) 96 MG/DL RISK RATIO LDL/HDL (test code = 1.68 RATIO 2238) HEMOGLOBIN [id number] 00:00:00 Test Item Value Reference Range Interpretation Comments HEMOGLOBIN A1c (test code = 61954) 5.3 % HEMOGLOBIN [id number] 00:00:00 Test Item Value Reference Range Interpretation Comments HEMOGLOBIN A1c (test code = 27271) 5.3 % [id number] 00:00:00 Test Item Value Reference Range Interpretation Comments RPR RESULT (test code = NON-REACTIVE 3501) RPR TITER (test code = 3500) NOT INDIC. TITER [id number] 00:00:00 Test Item Value Reference Range Interpretation Comments RPR RESULT (test code = NON-REACTIVE 3501) RPR TITER (test code = 3500) NOT INDIC. TITER HIV AB/AG COMBO RFLX [id number] 00:00:00 Test Item Value Reference Range Interpretation Comments HIV 1/2 4TH GEN, RFLX CONF (test NON-REACTIVE code = 3514) ACUTE HEPATITIS [id number] 00:00:00 Test Item Value Reference Range Interpretation Comments HEPATITIS A IgM (test code = NON-REACTIVE 10935) HEPATITIS B CORE IgM (test code NON-REACTIVE = 4644) HEPATITIS B SURF AG (test code = NON-REACTIVE 2969) HEPATITIS C ANTIBODY (test code NON-REACTIVE = 4675) INTERPRETATION HEPATITIS A: (NOTE) (test code = 2552) INTERPRETATION HEPATITIS B: (NOTE) (test code = 72278) INTERPRETATION HEPATITIS C: (NOTE) (test code = 27707) COMPREHENSIVE METABOLIC [id number] 00:00:00 Test Item Value Reference Range Interpretation Comments GLUCOSE (test code = 2217) 86 MG/DL BUN (test code = 2208) 7 MG/DL CREATININE (test code = 2214) 0.69 MG/DL eGFR (2020 CKD-EPI) (test 120 ML/MIN/1.73 code = 91796) CALC BUN/CREAT (test code = 10 RATIO [...] CALC GLOBULIN (test code = 2.8 G/DL 2240) CALC A/G RATIO (test code = 1.9 RATIO 2234) BILIRUBIN, TOTAL (test code = 0.8 MG/DL 2207) ALKALINE PHOSPHATASE (test 58 U/L code = 2204) AST (test code = 2218) 18 U/L ALT (test code = 2219) 12 U/L CBC W/AUTO [id number] 00:00:00 Test Item Value Reference Range Interpretation [...] NUCLEATED RBCS (test code = 0.00 K/UL 20090) CBC W/AUTO [id number] 00:00:00 Test Item Value Reference Range Interpretation [...] NUCLEATED RBCS (test code = 0.00 K/UL 57582) LIPID [id number] 00:00:00 Test Item Value Reference Range Interpretation Comments CHOLESTEROL (test code = 2210) 166 MG/DL TRIGLYCERIDES (test code = 2232) 51 MG/DL HDL CHOLESTEROL (test code = 2220) 57 MG/DL CALC LDL CHOL (test code = 2237) 96 MG/DL RISK RATIO LDL/HDL (test code = 1.68 RATIO 2238) HEMOGLOBIN [id number] 00:00:00 Test Item Value Reference Range Interpretation Comments HEMOGLOBIN A1c (test code = 50306) 5.3 % HEMOGLOBIN [id number] 00:00:00 Test Item Value Reference Range Interpretation Comments HEMOGLOBIN A1c (test code = 75191) 5.3 % [id number] 00:00:00 Test Item Value Reference Range Interpretation Comments RPR RESULT (test code = NON-REACTIVE 3501) RPR TITER (test code = 3500) NOT INDIC. TITER [id number] 00:00:00 Test Item Value Reference Range Interpretation Comments RPR RESULT (test code = NON-REACTIVE 3501) RPR TITER (test code = 3500) NOT INDIC. TITER HIV AB/AG COMBO RFLX [id number] 00:00:00 Test Item Value Reference Range Interpretation Comments HIV 1/2 4TH GEN, RFLX CONF (test NON-REACTIVE code = 3514) ACUTE HEPATITIS [id number] 00:00:00 Test Item Value Reference Range Interpretation Comments HEPATITIS A IgM (test code = NON-REACTIVE 33770) HEPATITIS B CORE IgM (test code NON-REACTIVE = 0834) HEPATITIS B SURF AG (test code = NON-REACTIVE 5092) HEPATITIS C ANTIBODY (test code NON-REACTIVE = 1190) INTERPRETATION HEPATITIS A: (NOTE) (test code = 2552) INTERPRETATION HEPATITIS B: (NOTE) (test code = 33905) INTERPRETATION HEPATITIS C: (NOTE) (test code = 18252) COMPREHENSIVE METABOLIC [id number] 00:00:00 Test Item Value Reference Range Interpretation Comments GLUCOSE (test code = 2217) 86 MG/DL BUN (test code = 2208) 7 MG/DL CREATININE (test code = 2214) 0.69 MG/DL eGFR (2020 CKD-EPI) (test 120 ML/MIN/1.73 code = 36907) CALC BUN/CREAT (test code = 10 RATIO [...] code = 2219) 12 U/L CBC W/AUTO [id number] 00:00:00 Test Item Value Reference Range Interpretation [...] NUCLEATED RBCS (test code = 0.00 K/UL 36024) CBC W/AUTO [id number] 00:00:00 Test Item Value Reference Range Interpretation [...] NUCLEATED RBCS (test code = 0.00 K/UL 10925) OPIATE, QUANT, URINE [REFLEX]2020-10-18 00:00:00 Test Item Value Reference Range Interpretation Comments MORPHINE INTERP (test code = 57525) Negative MORPHINE QNT (test code = 45440) <50 ng/mL OXYMORPHONE INTERP (test code = Negative 98401) OXYMORPHONE QNT (test code = 70407) <50 ng/mL HYDROMORPHONE INTERP (test code = Negative 240398) HYDROMORPHONE QNT (test code = <50 ng/mL 593645) CODEINE INTERP (test code = 26039) Negative CODEINE QNT (test code = 56092) <50 ng/mL OXYCODONE INTERP (test code = Negative 761939) OXYCODONE QNT (test code = 385624) <50 ng/mL HYDROCODONE INTERP (test code = Negative 11415) HYDROCODONE QNT (test code = 86155) <50 ng/mL 6-ACETYLMORPHINE INTERP (test code Negative = 994831) 6-ACETYLMORPHINE QNT (test code = <10 ng/mL 742521) BUPRENORPHINE, QUANT, URINE [REFLEX]2020-10-18 00:00:00 Test Item Value Reference Range Interpretation Comments BUPRENORPHINE INTERP (test code = Positive 53715) BUPRENORPHINE QNT (test code = >500 ng/mL 28734) OPIATE, QUANT, URINE [REFLEX]2020-10-18 00:00:00 Test Item Value Reference Range Interpretation Comments MORPHINE INTERP (test code = 74217) Negative MORPHINE QNT (test code = 73597) <50 ng/mL OXYMORPHONE INTERP (test code = Negative 16147) OXYMORPHONE QNT (test code = 08364) <50 ng/mL HYDROMORPHONE INTERP (test code = Negative 769770) HYDROMORPHONE QNT (test code = <50 ng/mL 998723) CODEINE INTERP (test code = 73960) Negative CODEINE QNT (test code = 39598) <50 ng/mL OXYCODONE INTERP (test code = Negative 113879) OXYCODONE QNT (test code = 728592) <50 ng/mL HYDROCODONE INTERP (test code = Negative 77481) HYDROCODONE QNT (test code = 66066) <50 ng/mL 6-ACETYLMORPHINE INTERP (test code Negative = 598834) 6-ACETYLMORPHINE QNT (test code = <10 ng/mL 172473) BUPRENORPHINE, QUANT, URINE [REFLEX]2020-10-18 00:00:00 Test Item Value Reference Range Interpretation Comments BUPRENORPHINE INTERP (test code = Positive 67398) BUPRENORPHINE QNT (test code = >500 ng/mL 46981) DRUG ABUSE PANEL 10 WITH [id number] 00:00:00 Test Item Value Reference Range Interpretation Comments AMPHETAMINES (test code = NEGATIVE 3201) BARBITURATES (test code = NEGATIVE 3202) BENZODIAZEPINES (test code NEGATIVE = 3203) CANNABINOIDS (test code = NEGATIVE 3204) COCAINE METABOLITE (test NEGATIVE code = 3205) OPIATES (test code = 3209) NEGATIVE OXYCODONE (test code = SEE REFLEX TESTING 67697) PHENCYCLIDINE (test code = NEGATIVE 3210) METHADONE (test code = NEGATIVE 3207) BUPRENORPHINE (test code = SEE REFLEX TESTING 26868) DRUG ABUSE PANEL 10 WITH [id number] 00:00:00 Test Item Value Reference Range Interpretation Comments AMPHETAMINES (test code = NEGATIVE 3201) BARBITURATES (test code = NEGATIVE 3202) BENZODIAZEPINES (test code NEGATIVE = 3203) CANNABINOIDS (test code = NEGATIVE 3204) COCAINE METABOLITE (test NEGATIVE code = 3205) OPIATES (test code = 3209) NEGATIVE OXYCODONE (test code = SEE REFLEX TESTING 54352) PHENCYCLIDINE (test code = NEGATIVE 3210) METHADONE (test code = NEGATIVE 3207) BUPRENORPHINE (test code = SEE REFLEX TESTING 55173) BENZODIAZEPINE, QUANT, URINE [REFLEX]2020-05-19 00:00:00 Test Item Value Reference Range Interpretation Comments HYDROXYALPRAZOLAM INTERP (test Negative code = 83028) HYDROXYALPRAZOLAM QNT (test code = <50 ng/mL 121297) LORAZEPAM INTERP (test code = Negative 08661) LORAZEPAM QNT (test code = 72869) <50 ng/mL OXAZEPAM INTERP (test code = Negative 87605) OXAZEPAM QNT (test code = 18348) <50 ng/mL TEMAZEPAM INTERP (test code = Negative 556272) TEMAZEPAM QNT (test code = 044950) <50 ng/mL NORDIAZEPAM INTERP (test code = Negative 75352) NORDIAZEPAM QNT (test code = <50 ng/mL 77839) [id number]-QCHHA-BVVYMBSWER INTERP (test Negative code = 506549) [id number] QNT (test code <50 ng/mL = 755027) 7-AMINOCLONAZEPAM INTERP (test Positive code = 476168) 7-AMINOCLONAZEPAM QNT (test code = 1940 ng/mL 631044) 7-AMINOFLUNITRAZEPAM INTERP (test Negative code = 791147) 7-AMINOFLUNITRAZEPAM QNT (test <50 ng/mL code = 913997) HYDROXYTRIAZOLAM INTERP (test code Negative = 980002) HYDROXYTRIAZOLAM QNT (test code = <50 ng/mL 718084) AMPHETAMINES, QUANT, URINE [REFLEX]2020-05-19 00:00:00 Test Item Value Reference Range Interpretation Comments AMPHETAMINE INTERP (test code = Positive 47377) AMPHETAMINE QNT (test code = >5000 ng/mL 47301) METHAMPHETAMINE INTERP (test code Positive = 15648) METHAMPHETAMINE QNT (test code = >5000 ng/mL 37579) MDA INTERP (test code = 61480) Negative MDA QNT (test code = 16384) <50 ng/mL MDMA INTERP (test code = 628591) Negative MDMA QNT (test code = 877460) <50 ng/mL BENZODIAZEPINE, QUANT, URINE [REFLEX]2020-05-19 00:00:00 Test Item Value Reference Range Interpretation Comments HYDROXYALPRAZOLAM INTERP (test Negative code = 34703) HYDROXYALPRAZOLAM QNT (test code = <50 ng/mL 118620) LORAZEPAM INTERP (test code = Negative 00887) LORAZEPAM QNT (test code = 03988) <50 ng/mL OXAZEPAM INTERP (test code = Negative 56009) OXAZEPAM QNT (test code = 61783) <50 ng/mL TEMAZEPAM INTERP (test code = Negative 270321) TEMAZEPAM QNT (test code = 346242) <50 ng/mL NORDIAZEPAM INTERP (test code = Negative 81001) NORDIAZEPAM QNT (test code = <50 ng/mL 70099) OZ-[id number]-[id number] INTERP (test Negative code = 153777) [id number]-[id number] QNT (test code <50 ng/mL = 538925) 7-AMINOCLONAZEPAM INTERP (test Positive code = 494430) 7-AMINOCLONAZEPAM QNT (test code = 1940 ng/mL 196569) 7-AMINOFLUNITRAZEPAM INTERP (test Negative code = 996386) 7-AMINOFLUNITRAZEPAM QNT (test <50 ng/mL code = 355475) HYDROXYTRIAZOLAM INTERP (test code Negative = 207941) HYDROXYTRIAZOLAM QNT (test code = <50 ng/mL 541706) AMPHETAMINES, QUANT, URINE [REFLEX]2020-05-19 00:00:00 Test Item Value Reference Range Interpretation Comments AMPHETAMINE INTERP (test code = Positive 41539) AMPHETAMINE QNT (test code = >5000 ng/mL 27416) METHAMPHETAMINE INTERP (test code Positive = 41268) METHAMPHETAMINE QNT (test code = >5000 ng/mL 23258) MDA INTERP (test code = 97385) Negative MDA QNT (test code = 86180) <50 ng/mL MDMA INTERP (test code = 968577) Negative MDMA QNT (test code = 937230) <50 ng/mL DRUG ABUSE SCREEN 10 REFLEX CONFIRM [ADDED]2020-05-16 00:00:00 Test Item Value Reference Range Interpretation Comments AMPHETAMINES (test code = SEE REFLEX TESTING 3201) BARBITURATES (test code = NEGATIVE 3202) BENZODIAZEPINES (test code SEE REFLEX TESTING = 3203) CANNABINOIDS (test code = NEGATIVE 3204) COCAINE METABOLITE (test NEGATIVE code = 3205) OPIATES (test code = 3209) NEGATIVE OXYCODONE (test code = NEGATIVE 19762) PHENCYCLIDINE (test code = NEGATIVE 3210) METHADONE (test code = NEGATIVE 3207) BUPRENORPHINE (test code = NEGATIVE 91718) DRUG ABUSE SCREEN 10 REFLEX CONFIRM [ADDED]2020-05-16 00:00:00 Test Item Value Reference Range Interpretation Comments AMPHETAMINES (test code = SEE REFLEX TESTING 3201) BARBITURATES (test code = NEGATIVE 3202) BENZODIAZEPINES (test code SEE REFLEX TESTING = 3203) CANNABINOIDS (test code = NEGATIVE 3204) COCAINE METABOLITE (test NEGATIVE code = 3205) OPIATES (test code = 3209) NEGATIVE OXYCODONE (test code = NEGATIVE 73374) PHENCYCLIDINE (test code = NEGATIVE 3210) METHADONE (test code = NEGATIVE 3207) BUPRENORPHINE (test code = NEGATIVE 99695) BUPRENORPHINE AND [id number] 00:00:00 Test Item Value Reference Range Interpretation Comments NORBUPRENORPHINE (test code = <1.0 ng/mL 63150) BUPRENORPHINE (test code = 96504) <1.0 ng/mL BUPRENORPHINE AND [id number] 00:00:00 Test Item Value Reference Range Interpretation Comments NORBUPRENORPHINE (test code = <1.0 ng/mL 33510) BUPRENORPHINE (test code = 48334) <1.0 ng/mL DRUG SCREEN, [id number] 00:00:00 Test Item Value Reference Range Interpretation Comments AMPHETAMINES (test code = 85160) Positive BARBITURATES (test code = 43985) Negative BENZODIAZEPINES (test code = 70459) Negative COCAINE METABOLITE (test code = Negative 67034) METHADONE (test code = 30117) Negative OPIATES (test code = 408059) Negative PHENCYCLIDINE (test code = 787574) Negative PROPOXYPHENE (test code = 896795) Negative THC (CANNABIS) (test code = 997778) Negative ETHANOL (test code = 239751) Negative DRUG SCREEN, [id number] 00:00:00 Test Item Value Reference Range Interpretation Comments AMPHETAMINES (test code = 37018) Positive BARBITURATES (test code = 06477) Negative BENZODIAZEPINES (test code = 17367) Negative COCAINE METABOLITE (test code = Negative 75306) METHADONE (test code = 10806) Negative OPIATES (test code = 971172) Negative PHENCYCLIDINE (test code = 068804) Negative PROPOXYPHENE (test code = 541995) Negative THC (CANNABIS) (test code = 410294) Negative ETHANOL (test code = 628182) Negative DRUG ABUSE PANEL 10 WITH [id number] 00:00:00 Test Item Value Reference Range Interpretation Comments AMPHETAMINES (test code = 3201) NEGATIVE BARBITURATES (test code = 3202) NEGATIVE BENZODIAZEPINES (test code = 3203) NEGATIVE CANNABINOIDS (test code = 3204) NEGATIVE COCAINE METABOLITE (test code = NEGATIVE 3205) OPIATES (test code = 3209) NEGATIVE OXYCODONE (test code = 48701) NEGATIVE PHENCYCLIDINE (test code = 3210) NEGATIVE METHADONE (test code = 3207) NEGATIVE BUPRENORPHINE (test code = 05113) NEGATIVE DRUG ABUSE PANEL 10 WITH [id number] 00:00:00 Test Item Value Reference Range Interpretation Comments AMPHETAMINES (test code = 3201) NEGATIVE BARBITURATES (test code = 3202) NEGATIVE BENZODIAZEPINES (test code = 3203) NEGATIVE CANNABINOIDS (test code = 3204) NEGATIVE COCAINE METABOLITE (test code = NEGATIVE 3205) OPIATES (test code = 3209) NEGATIVE OXYCODONE (test code = 48838) NEGATIVE PHENCYCLIDINE (test code = 3210) NEGATIVE METHADONE (test code = 3207) NEGATIVE BUPRENORPHINE (test code = 78744) NEGATIVE DRUG ABUSE PANEL 10 WITH [id number] 00:00:00 Test Item Value Reference Range Interpretation Comments AMPHETAMINES (test code = 3201) NEGATIVE BARBITURATES (test code = 3202) NEGATIVE BENZODIAZEPINES (test code = 3203) NEGATIVE CANNABINOIDS (test code = 3204) NEGATIVE COCAINE METABOLITE (test code = NEGATIVE 3205) OPIATES (test code = 3209) NEGATIVE OXYCODONE (test code = 49365) NEGATIVE PHENCYCLIDINE (test code = 3210) NEGATIVE METHADONE (test code = 3207) NEGATIVE BUPRENORPHINE (test code = 19245) NEGATIVE DRUG ABUSE PANEL 10 WITH [id number] 00:00:00 Test Item Value Reference Range Interpretation Comments AMPHETAMINES (test code = 3201) NEGATIVE BARBITURATES (test code = 3202) NEGATIVE BENZODIAZEPINES (test code = 3203) NEGATIVE CANNABINOIDS (test code = 3204) NEGATIVE COCAINE METABOLITE (test code = NEGATIVE 3205) OPIATES (test code = 3209) NEGATIVE OXYCODONE (test code = 12254) NEGATIVE PHENCYCLIDINE (test code = 3210) NEGATIVE METHADONE (test code = 3207) NEGATIVE BUPRENORPHINE (test code = 65227) NEGATIVE COCAINE METAB, QUANT, URINE [REFLEX]2019-05-14 00:00:00 Test Item Value Reference Range Interpretation Comments BENZOYLECGONINE INTERP (test code = Positive 38474) BENZOYLECGONINE QNT (test code = 488 ng/mL 68148) AMPHETAMINES, QUANT, URINE [REFLEX]2019-05-14 00:00:00 Test Item Value Reference Range Interpretation Comments AMPHETAMINE INTERP (test code = Positive 07361) AMPHETAMINE QNT (test code = >5000 ng/mL 85690) METHAMPHETAMINE INTERP (test code Positive = 46380) METHAMPHETAMINE QNT (test code = >5000 ng/mL 93656) MDA INTERP (test code = 95199) Negative MDA QNT (test code = 38826) <50 ng/mL MDMA INTERP (test code = 844923) Negative MDMA QNT (test code = 701814) <50 ng/mL COCAINE METAB, QUANT, URINE [REFLEX]2019-05-14 00:00:00 Test Item Value Reference Range Interpretation Comments BENZOYLECGONINE INTERP (test code = Positive 22374) BENZOYLECGONINE QNT (test code = 488 ng/mL 46744) AMPHETAMINES, QUANT, URINE [REFLEX]2019-05-14 00:00:00 Test Item Value Reference Range Interpretation Comments AMPHETAMINE INTERP (test code = Positive 97107) AMPHETAMINE QNT (test code = >5000 ng/mL 23614) METHAMPHETAMINE INTERP (test code Positive = 39502) METHAMPHETAMINE QNT (test code = >5000 ng/mL 99557) MDA INTERP (test code = 31394) Negative MDA QNT (test code = 64685) <50 ng/mL MDMA INTERP (test code = 566294) Negative MDMA QNT (test code = 285296) <50 ng/mL CBC W/AUTO [id number] 00:00:00 Test Item Value Reference Range Interpretation [...] code = 1015) 301 K/UL COMPREHENSIVE METABOLIC [id number] 00:00:00 Test Item Value Reference Range Interpretation Comments GLUCOSE (test code = 2217) 101 MG/DL BUN (test code = 2208) 11 MG/DL CREATININE (test code = 2214) 0.71 MG/DL eGFR AMER. (test code 139 ML/MIN/1.73 = 10143) eGFR NON- AMER. (test 120 ML/MIN/1.73 code = 01069) CALC BUN/CREAT (test code = 15 RATIO 2235) SODIUM (test code = 2231) 144 MEQ/L POTASSIUM (test code = 2228) 4.2 MEQ/L CHLORIDE (test code = 2215) 105 MEQ/L CARBON DIOXIDE (test code = 26 MEQ/L 2205) CALCIUM (test code = 2209) 9.5 MG/DL PROTEIN, TOTAL (test code = 7.7 G/DL 2228) ALBUMIN (test code = 2201) 4.8 G/DL CALC GLOBULIN (test code = 2.9 G/DL 0) CALC A/G RATIO (test code = 1.7 [...] NON-REACTIVE 2728) DRUG ABUSE PANEL 10 WITH [id number] 00:00:00 Test Item Value Reference Range Interpretation Comments AMPHETAMINES (test code = SEE REFLEX TESTING 3201) BARBITURATES (test code = NEGATIVE 3202) BENZODIAZEPINES (test code NEGATIVE = 3203) CANNABINOIDS (test code = NEGATIVE 3204) COCAINE METABOLITE (test SEE REFLEX TESTING code = 3205) OPIATES (test code = 3209) NEGATIVE OXYCODONE (test code = NEGATIVE 69314) PHENCYCLIDINE (test code = NEGATIVE 3210) METHADONE (test code = NEGATIVE 3207) BUPRENORPHINE (test code = NEGATIVE 91036) HEPATITIS PROFILE (A,B,C)2019-05-11 00:00:00 Test Item Value [...] INTERPRETATION HEPATITIS B: (NOTE) (test code = 28777) INTERPRETATION HEPATITIS C: (NOTE) (test code = 87717) CBC W/AUTO [id number] 00:00:00 Test Item Value Reference Range Interpretation [...] code = 1015) 301 K/UL CBC W/AUTO [id number] 00:00:00 Test Item Value Reference Range Interpretation [...] code = 1015) 301 K/UL COMPREHENSIVE METABOLIC [id number] 00:00:00 Test Item Value Reference Range Interpretation Comments GLUCOSE (test code = 2217) 101 MG/DL BUN (test code = 2208) 11 MG/DL CREATININE (test code = 2214) 0.71 MG/DL eGFR AMER. (test code 139 ML/MIN/1.73 = 01734) eGFR NON- AMER. (test 120 ML/MIN/1.73 code = 71850) CALC BUN/CREAT (test code = 15 RATIO 2235) SODIUM (test code = 2231) 144 MEQ/L POTASSIUM (test code = 2228) 4.2 MEQ/L CHLORIDE (test code = 2215) 105 MEQ/L CARBON DIOXIDE (test code = 26 MEQ/L 2205) CALCIUM (test code = 2209) 9.5 MG/DL PROTEIN, TOTAL (test code = 7.7 G/DL 2228) ALBUMIN (test code = 2201) 4.8 G/DL CALC GLOBULIN (test code = 2.9 G/DL 0) CALC A/G RATIO (test code = 1.7 [...] NON-REACTIVE 2728) DRUG ABUSE PANEL 10 WITH [id number] 00:00:00 Test Item Value Reference Range Interpretation Comments AMPHETAMINES (test code = SEE REFLEX TESTING 3201) BARBITURATES (test code = NEGATIVE 3202) BENZODIAZEPINES (test code NEGATIVE = 3203) CANNABINOIDS (test code = NEGATIVE 3204) COCAINE METABOLITE (test SEE REFLEX TESTING code = 3205) OPIATES (test code = 3209) NEGATIVE OXYCODONE (test code = NEGATIVE 20597) PHENCYCLIDINE (test code = NEGATIVE 3210) METHADONE (test code = NEGATIVE 3207) BUPRENORPHINE (test code = NEGATIVE 42044) HEPATITIS PROFILE (A,B,C)2019-05-11 00:00:00 Test Item Value [...] INTERPRETATION HEPATITIS B: (NOTE) (test code = 36060) INTERPRETATION HEPATITIS C: (NOTE) (test code = 22732) CBC W/AUTO [id number] 00:00:00 Test Item Value Reference Range Interpretation [...]
[2022-06-07 15:27] LABS: SARS-COV-2 RT PCR NEGATIVE (NEGATIVE)
--- NOTE | 2022-06-07 16:03 | EDPHYS ---
Physician Documentation [facility] Name: Kervin Alarcon Age: 42 yrs Sex: Male : 1980 Arrival Date: 06/07/2022 Time: 14:20 Bed IW1 Private MD: ED Physician Ranjit Marcus HPI: 06/07 14:25 This 42 yrs old Male presents to ER via Ambulatory with complaints of Flu Symptoms. jh7 14:25 Onset: The symptoms/episode began/occurred yesterday. Associated signs and symptoms: jh7 Pertinent positives: fever, Chills, body aches, runny nose, Pertinent negatives: abdominal pain, chest pain, shortness of breath, sore throat, vomiting. Patient states he just wants to be tested for COVID and flu before he goes back to college. Historical: - Allergies: 14:27 No Known Allergies; jh5 - PMHx: 14:27 Anxiety; Depression; jh5 - Immunization history:: Adult Immunizations up to date. - Social history:: Smoking status: Patient denies any tobacco usage or history of. ROS: 14:25 Eyes: Negative for injury, pain, redness, and discharge, Cardiovascular: Negative for jh7 chest pain, palpitations, and edema, Respiratory: Negative for shortness of breath, cough, wheezing, and pleuritic chest pain, Abdomen/GI: Negative for abdominal pain, nausea, vomiting, diarrhea, and constipation, Back: Negative for injury and pain, Skin: Negative for injury, rash, and discoloration, Neuro: Negative for headache, weakness, numbness, tingling, and seizure. 14:25 Constitutional: Positive for body aches, chills, fever. 14:25 ENT: Positive for nasal discharge. 14:25 All other systems are negative. Exam: 14:25 Constitutional: This is a well developed, well nourished patient who is awake, alert, jh7 and in no acute distress. Head/Face: Normocephalic, atraumatic. Cardiovascular: Regular rate and rhythm with a normal S1 and S2. No gallops, murmurs, or rubs. Normal PMI, no JVD. No pulse deficits. Respiratory: Lungs have equal breath sounds bilaterally, clear to auscultation and percussion. No rales, rhonchi or wheezes noted. No increased work of breathing, no retractions or nasal flaring. Abdomen/GI: Soft, non-tender, with normal bowel sounds. No distension or tympany. No guarding or rebound. No evidence of tenderness throughout. Back: No spinal tenderness. No costovertebral tenderness. Full range of motion. Skin: Warm, dry with normal turgor. Normal color with no rashes, no lesions, and no evidence of cellulitis. MS/ Extremity: Pulses equal, no cyanosis. Neurovascular intact. Full, normal range of motion. Neuro: Awake and alert, GCS 15, oriented to person, place, time, and situation. Normal gait. 14:25 ENT: TM's: are normal, Nose: nasal drainage, and is seen coming from both nares, that is clear. Vital Signs: 14:25 BP 115 / 82; Pulse 86; Resp 18; Temp 98.6; Pulse Ox 98% ; Weight 52.16 kg; Height 5 ft. jh5 10 in. (177.80 cm); Pain 0/10; 14:25 Body Mass Index 16.50 (52.16 kg, 177.80 cm) [facility] MDM: 14:21 Patient medically screened. [facility] 16:03 Differential diagnosis: viral Infection, URI. Data reviewed: vital signs, nurses notes. [facility] I considered the following discharge prescriptions or medication management in the emergency department I discussed and recommended Over The Counter medications. Counseling: I had a detailed discussion with the patient and/or guardian regarding: the historical points, exam findings, and any diagnostic results supporting the discharge/admit diagnosis, to return to the emergency department if symptoms worsen or persist or if there are any questions or concerns that arise at home. 06/07 14:27 Order name: COVID-19/FLU A+B [facility] 06/07 15:27 Order name: COVID-19/FLU A+B; Complete Time: 16:01 EDMS Administered Medications: No medications were administered Disposition: 06/08 07:12 Co-signature as Attending Physician, Ranjit Marcus MD I reviewed the patient's care rn provided by the Advanced Practice Provider and agree with the diagnosis and treatment plan. Disposition Summary: 06/07/22 16:03 Discharge Ordered Location: Home [facility] Problem: new [facility] Symptoms: are unchanged [facility] Condition: Stable [facility] Diagnosis - Viral Syndrome [facility] Followup: [facility] - With: Private Physician - When: 2 - 3 days - Reason: Recheck today's complaints Discharge Instructions: - Discharge Summary Sheet jh7 - Fever, Adult 7 Forms: - Medication Reconciliation Form jh7 - Thank You Letter jh7 Signatures: Dispatcher [employer] Ranjit Curtis MD MD rn Rees, Jessica, RN RN jh5 Minnie Markham FNP FNP jh7
--- NOTE | 2022-06-07 16:03 | ER ---
Nurse's Notes [facility] Name: Kervin Alarcon Age: 42 yrs Sex: Male : 1980 Arrival Date: 06/07/2022 Time: 14:20 Bed IW1 Private MD: Diagnosis: Viral Syndrome Presentation: 06/07 14:25 Chief complaint: Patient states: chills, fever on and off, body aches, runny nose, and jh5 everything. I have a bunch of classes i gotta take and I wanna make sure im okay to go before i spread anything around. Coronavirus screen: Vaccine status: Patient reports being unvaccinated. Client denies travel out of the [place] in the last 14 days. Ebola Screen: Patient negative for fever greater than or equal to 101.5 degrees Fahrenheit, and additional compatible Ebola Virus Disease symptoms Patient denies exposure to infectious person. Patient denies travel to an Ebola-affected area in the 21 days before illness onset. Initial Sepsis Screen: Does the patient meet any 2 criteria? No. Patient's initial sepsis screen is negative. Does the patient have a suspected source of infection? No. Patient's initial sepsis screen is negative. Risk Assessment: Do you want to hurt yourself or someone else? Patient reports no desire to harm self or others. 14:25 Method Of Arrival: Ambulatory [facility] 14:25 Acuity: MADDI 3 jh5 Triage Assessment: 14:27 General: Appears in no apparent distress. slender, well groomed, well developed, [facility] Behavior is calm, cooperative, appropriate for age. Pain: Denies pain. Historical: - Allergies: 14:27 No Known Allergies; 5 - PMHx: 14:27 Anxiety; Depression; [facility] - Immunization history:: Adult Immunizations up to date. - Social history:: Smoking status: Patient denies any tobacco usage or history of. Vital Signs: 14:25 BP 115 / 82; Pulse 86; Resp 18; Temp 98.6; Pulse Ox 98% ; Weight 52.16 kg; Height 5 ft. jh5 10 in. (177.80 cm); Pain 0/10; 14:25 Body Mass Index 16.50 (52.16 kg, 177.80 cm) [facility] ED Course: 14:20 Patient arrived in ED. as 14:20 Minnie Markham FNP [facility] 7 14:21 Ranjit Marcus MD is Attending Physician. 7 14:27 Triage completed. 5 14:27 Arm band placed on right wrist. 5 14:31 COVID-19/FLU A+B Sent. 5 Administered Medications: No medications were administered Outcome: 16:03 Discharge ordered by . 7 16:40 Patient left the ED. [facility] Signatures: Betty Rivera Jessica, RN RN 5 Minnie Markham FNP CATERING ATTENDANT [facility]
[2022-06-07 16:53] VITALS: BP 115/82; TEMP 98.6; O2SAT 98
== END 2022-06-07 16:40 | disposition home or self-care (01) ==
LOC: ER 14:17
DX: B34.9 Viral infection, unspecified (principal); Z20.822 Contact with and (suspected) exposure to COVID-19
CPT/HCPCS: 0240U; 99282